=== PATIENT | female | born 1970 | race Caucasian/White ===

== ENCOUNTER 2022-01-07 20:13 | Emergency (ER) | payer MEDICAID ==
[~2022-01-07] VITALS: Ht 152.4 cm; Wt 48.0 kg
[~2022-01-07 20:13] MED LIST: AMOX-424 MT; INSU100I28 SQ
[2022-01-07] MEDS ORDERED: ONDANSETRON HCL 4MG/2ML INJ IV STA (21:15)
[2022-01-07] MEDS ORDERED: MORPHINE SULFATE 4 MG/ML CPJ (NOT FOR IM USE) IV STA (21:15)
[2022-01-07] MEDS ORDERED: SODIUM CHLORIDE 0.9% 1,000 ML IV ONE (21:15)
[2022-01-07 21:36] LABS: BASOPHILS % 0.4 % (0.0-2.0); EOSINOPHILS % 0.2 % (0.0-5.0); HEMATOCRIT. 30.5 % (36.0-48.0); HEMOGLOBIN. 10.9 g/dL (12.0-16.0); LYMPHOCYTES % 25.7 % (20.0-50.0); MEAN CORPUSCULAR HEMOGLOBIN 30.7 pg (28.0-32.0); MEAN PLATELET VOLUME 9.2 fl (7.4-10.4); MONOCYTES % 6.6 % (2.0-8.0); NEUTROPHILS % 67.1 % (40.0-76.0); PLATELET 269 x1000/uL (130-400); RED BLOOD CELL COUNT 3.55 mill/uL (4.2-5.4); RED CELL DISTRIBUTION WIDTH 13.4 % (11.6-14.6)
[2022-01-07 21:48] LABS: CHLORIDE 97 mEq/L (98-107)
[2022-01-07 21:54] LABS: HCG SCREEN NEGATIVE
[2022-01-07 23:22] LABS: CLARITY URINE CLEAR (CLEAR); COLOR URINE YELLOW (YELLOW); KETONES URINE NEGATIVE (NEGATIVE); LEUKOCYTE ESTERASE URINE NEGATIVE (NEGATIVE); NITRITE URINE NEGATIVE (NEGATIVE); OCCULT BLOOD URINE TRACE (NEGATIVE); PROTEIN URINE 3+ (NEGATIVE); SPECIFIC GRAVITY URINE 1.019 (1.005-1.030)
[2022-01-08] MEDS ORDERED: METO5TAB86 MT (01:22)
[2022-01-08] MEDS ORDERED: PROT20 MT (01:22)
[2022-01-08 02:00] VITALS: BP 122/81
== END 2022-01-08 02:04 | disposition home or self-care (01) ==
LOC: ER 20:13
DX: E11.43 Type 2 diabetes mellitus with diabetic autonomic (poly)neuropathy (principal); K31.84 Gastroparesis; K21.9 Gastro-esophageal reflux disease without esophagitis; Z79.899 Other long term (current) drug therapy
CPT/HCPCS: 36415; 71045; 74176; 80053; 81003; 82962; 83605; 83690; 84703; 85025; 93005; 96361; 96374; 96375; 99285; J2270; J2405; J7030

== ENCOUNTER 2023-02-07 23:12 | Emergency (ER) | payer MEDICAID ==
[~2023-02-07] VITALS: Ht 149.9 cm; Wt 58.7 kg
[~2023-02-07 23:12] MED LIST changes: +METO5TAB86 MT; +PROT20 MT
[2023-02-07 23:21] VITALS: O2SAT 100
[2023-02-08] MEDS ORDERED: LIDOCAINE HCL/PF 1% 10 MG/ML 5ML VIAL INFIL ONE (00:15)
[2023-02-08] MEDS ORDERED: SULFAMETHOXAZOLE/TRIMETHOPRIM 800/160MG TABLET PO ONE (00:15)
[2023-02-08] MEDS ORDERED: LIDOCAINE HCL 1% 20ML VIAL (Pyxis) INJ INFIL ONE (00:15)
[2023-02-08] MEDS ORDERED: LIDOCAINE HCL/EPINEPHRINE 1%-EPI 1:100,000 20 ML VIAL INFIL ONE (00:15)
[2023-02-08] MEDS ORDERED: CEFTRIAXONE SODIUM 1 G/VIAL IM ONE (00:15)
[2023-02-08] MEDS ORDERED: IBUPROFEN 400MG TABLET PO ONE (00:15)
[2023-02-08] MEDS ORDERED: HYDROCODONE/ACETAMINOPHEN 5/325MG TABLET PO ONE (01:45)
[2023-02-08] MEDS ORDERED: HYDR-4001 MT (01:46)
[2023-02-08] MEDS ORDERED: CEPH500C2 MT (01:46)
[2023-02-08] MEDS ORDERED: SULF1TAB48 MT (01:46)
[2023-02-08] MEDS ORDERED: IBUP-2028 MT (01:46)
[2023-02-08] MEDS ORDERED: CEFTRIAXONE SODIUM 1 G/VIAL IM NR (02:00)
[2023-02-08 02:40] VITALS: BP 105/61; PULSE 69; RESP 16; TEMP 98.4
== END 2023-02-08 02:45 | disposition home or self-care (01) ==
LOC: ER 23:12
DX: L02.212 Cutaneous abscess of back [any part, except buttock and flank] (principal); E11.9 Type 2 diabetes mellitus without complications; Z79.899 Other long term (current) drug therapy
CPT/HCPCS: 10060; 99284; 96372; J0696; J3490 ×2; Z7610 ×4

== ENCOUNTER 2023-02-11 21:00 | Inpatient (IN) | payer MEDICAID, OTHER ==
[~2023-02-11] VITALS: Ht 149.9 cm; Wt 66.0 kg
[~2023-02-11 21:00] MED LIST changes: +CEPH500C2 MT; +HYDR-4001 MT; +IBUP-2028 MT; +SULF1TAB48 MT
[2023-02-11] MEDS ORDERED: SODIUM CHLORIDE 0.9% 1000ML BAG (SEPSIS BOLUS) IV ONE (21:30)
[2023-02-11 22:03] LABS: MEAN CORPUSCULAR HEMOGLOBIN 29.7 pg (28.0-32.0); MEAN CORPUSCULAR VOLUME 89.9 fL (81.0-99.0); MEAN PLATELET VOLUME 9.2 fl (7.4-10.4); PLATELET 479 x1000/uL (130-400); RED BLOOD CELL COUNT 2.04 mill/uL (4.2-5.4); RED CELL DISTRIBUTION WIDTH 14.5 % (11.6-14.6); WHITE BLOOD COUNT 10.7 x1000/uL (4.5-11.0)
[2023-02-11 22:08] LABS: DIFFERENTIAL COMMENT 1
[2023-02-11 22:09] LABS: CHLORIDE 96 mEq/L (98-107); INDEX HEMOLYSI 1 (1-3); INDEX ICTERIC 1 (1-4); INDEX LIPEMIC 1 (1-3); INR 1.1; POTASSIUM 4.5 mEq/L (3.5-5.1); PROTHROMBIN TIME 11.8 sec (9.6-11.0); SODIUM 127 mEq/L (136-145)
[2023-02-11 22:11] LABS: HEMATOCRIT. 18.4 % (36.0-48.0); HEMOGLOBIN. 6.1 g/dL (12.0-16.0)
[2023-02-11 22:16] LABS: ALANINE AMINOTRANSFERASE 77 IU/L (13-61); ALBUMIN 1.1 g/dL (3.4-5.0); ASPARTATE AMINOTRANSFERASE 74 IU/L (15-37); BILIRUBIN TOTAL 0.1 mg/dL (0.1-1.0); CALCIUM 7.4 mg/dL (8.5-10.1); CARBON DIOXIDE 17 mEq/L (21-32); GLUCOSE 240 mg/dL (70-105); PROTEIN TOTAL 5.8 g/dL (6.0-8.3)
[2023-02-11 22:20] LABS: TROPONIN I HIGH SENSITIVITY 4 ng/L (<54)
[2023-02-11 22:23] LABS: CREATININE 5.4 mg/dL (0.6-1.3); UREA NITROGEN BLOOD 101 mg/dL (7-21)
[2023-02-11 23:32] LABS: PLATELET ESTIMATE INCREASED
[2023-02-12] VITALS (8 sets, daily range): BP systolic 82–114; BP diastolic 42–69; PULSE 58–68; RESP 14–20; TEMP 96.8–98.2
[2023-02-12] MEDS ORDERED: VANCOMYCIN 1G PREMIX 200 ML IV ONE (00:15)
[2023-02-12] MEDS ORDERED: PIPERACILLIN/TAZ 3.375G PREMIX 50 ML IV ONE (00:15)
[2023-02-12 06:22] LABS: CLARITY URINE CLOUDY (CLEAR); COLOR URINE YELLOW (YELLOW); GLUCOSE URINE 2+ (NEGATIVE); KETONES URINE NEGATIVE (NEGATIVE); LEUKOCYTE ESTERASE URINE NEGATIVE (NEGATIVE); NITRITE URINE NEGATIVE (NEGATIVE); OCCULT BLOOD URINE NEGATIVE (NEGATIVE); PH URINE 5.5 (4.5-8.0); PROTEIN URINE 3+ (NEGATIVE); SPECIFIC GRAVITY URINE 1.018 (1.005-1.030); UROBILINOGEN URINE 0.2 E.U./dL (0.2-1.0)
[2023-02-12 06:27] LABS: BACTERIA URINE NONE SEEN; YEAST URINE NONE SEEN
[2023-02-12 07:06] LABS: RBC URINE 0-2 /hpf (0-2); SQUAMOUS EPITHELIAL CELL URINE FEW /lpf (RARE/1+); WBC URINE 0-2 /hpf (0-2)
[2023-02-12] MEDS ORDERED: DEXTROSE 50% WATER 50ML SYRINGE IV PRN (08:15)
[2023-02-12] MEDS ORDERED: ONDANSETRON HCL 4MG/2ML INJ IV PRN (08:15)
[2023-02-12] MEDS: SODIUM CHLORIDE 0.9% 1,000 ML IV SCH ×2 (08:24→22:08)
[2023-02-12] MEDS: PANTOPRAZOLE SODIUM 40 MG/VIAL IV SCH ×2 (08:43→17:19)
[2023-02-12 09:15] LABS: HEMOGLOBIN. 7.6 g/dL (12.0-16.0); MEAN CORPUSCULAR HEMOGLOBIN 29.4 pg (28.0-32.0); MEAN CORPUSCULAR HGB CONC 32.8 g/dL (31.0-37.0); MEAN CORPUSCULAR VOLUME 89.6 fL (81.0-99.0); MEAN PLATELET VOLUME 9.3 fl (7.4-10.4); PLATELET 451 x1000/uL (130-400); RED BLOOD CELL COUNT 2.57 mill/uL (4.2-5.4); RED CELL DISTRIBUTION WIDTH 14.7 % (11.6-14.6); WHITE BLOOD COUNT 11.6 x1000/uL (4.5-11.0)
[2023-02-12 09:19] LABS: DIFFERENTIAL COMMENT 1
[2023-02-12] MEDS: INSULIN LISPRO 100 UNITS/ML SUBCUT SCH ×4 (09:30→22:05)
[2023-02-12] MEDS ORDERED: ALBUMIN HUMAN 25GM/100ML (25%) IV NR (10:30)
[2023-02-12 10:51] LABS: BASOPHILS % 0.2 % (0.0-2.0); DIFFERENTIAL COMMENT 0; EOSINOPHILS % 0.1 % (0.0-5.0); HEMATOCRIT. 24.1 % (36.0-48.0); HEMOGLOBIN. 7.9 g/dL (12.0-16.0); LYMPHOCYTES % 7.3 % (20.0-50.0); MEAN CORPUSCULAR HGB CONC 32.8 g/dL (31.0-37.0); MEAN CORPUSCULAR VOLUME 88.5 fL (81.0-99.0); MONOCYTES % 3.4 % (2.0-8.0); PLATELET 495 x1000/uL (130-400); RED BLOOD CELL COUNT 2.73 mill/uL (4.2-5.4); RED CELL DISTRIBUTION WIDTH 14.9 % (11.6-14.6); WHITE BLOOD COUNT 12.2 x1000/uL (4.5-11.0)
[2023-02-12 11:07] LABS: PLATELET ESTIMATE INCREASED
[2023-02-12 11:38] LABS: THYROID STIMULATING HORMONE 1.5 uIU/mL (0.36-3.74)
[2023-02-12 11:43] LABS: CALCIUM 7.1 mg/dL (8.5-10.1); CARBON DIOXIDE 13 mEq/L (21-32); CHLORIDE 103 mEq/L (98-107); CREATININE 5.1 mg/dL (0.6-1.3); GLUCOSE 256 mg/dL (70-105); POTASSIUM 4.6 mEq/L (3.5-5.1); PROTEIN TOTAL 5.7 g/dL (6.0-8.3); SODIUM 129 mEq/L (136-145); UREA NITROGEN BLOOD 78 mg/dL (7-21)
[2023-02-12 11:44] LABS: ALANINE AMINOTRANSFERASE 64 IU/L (13-61); ASPARTATE AMINOTRANSFERASE 44 IU/L (15-37); BILIRUBIN TOTAL 0.2 mg/dL (0.1-1.0); INDEX HEMOLYSI 1 (1-3); INDEX ICTERIC 1 (1-4); INDEX LIPEMIC 1 (1-3)
[2023-02-12] MEDS ORDERED: INSULIN LISPRO 100 UNITS/ML SUBCUT SCH (12:00)
[2023-02-12] MEDS: PIPERACILLIN/TAZOBACTAM 3.375 G in DEXTROSE 5% WATER 50 ML IV SCH ×2 (13:00→21:48)
[2023-02-12] MEDS: BLOOD SUGAR DIAGNOSTIC STRIP TEST SCH ×3 (14:00→21:00)
[2023-02-12 14:26] LABS: BG BASE EXCESS -10.4 mmol/L (-2.0-2.0); BG CARBOXYHEMOGLOBIN 0.3 % (0.5-1.5); BG DEOXYHEMOGLOBIN 2.5 % (0.0-5.0); BG FRACTION INSPIRED OXYGEN 21; BG HCO3 ACT 13.8 mmol/L (22.0-26.0); BG METHEMOGLOBIN 0.1 % (0.0-1.5); BG OXYGEN SATURATION 97.5 % (92.0-98.5); BG OXYHEMOGLOBIN 97.1 % (94.0-97.0); BG PCO2 24.9 mmHg (35.0-45.0); BG PO2 109.2 mmHg (75.0-100.0); BG SAMPLE SITE LEFT RADIAL; BG TOTAL HEMOGLOBIN 8.8 g/dL (12.0-18.0); BG VENT MODE ROOM AIR
[2023-02-12] MEDS ORDERED: SODIUM CHLORIDE 0.9% 250 ML IV ONE (17:45)
[2023-02-12] MEDS: MIDODRINE HCL 5MG TABLET PO SCH (17:59)
[2023-02-12] MEDS: ACETAMINOPHEN 325MG TABLET PO PRN (18:33)
[2023-02-12] MEDS ORDERED: PNEUMOCOCCAL 23-VAL P-SAC VAC 0.5 ML IM ONE (19:15)
[2023-02-13] VITALS: BP 112/61; PULSE 65; RESP 16; TEMP 96.8
[2023-02-13 04:00] VITALS: BP 92/46; PULSE 55; RESP 18; TEMP 97.1
[2023-02-13] MEDS: METOCLOPRAMIDE HCL 10MG/2ML VIAL IV SCH ×5 (06:24→23:56)
[2023-02-13] MEDS: BLOOD SUGAR DIAGNOSTIC STRIP TEST SCH ×4 (06:25→22:20)
[2023-02-13] MEDS: INSULIN LISPRO 100 UNITS/ML SUBCUT SCH ×4 (07:40→22:34)
[2023-02-13 08:00] VITALS: BP 113/62; PULSE 67; RESP 20; TEMP 97.8
[2023-02-13 08:02] LABS: ALANINE AMINOTRANSFERASE 53 IU/L (13-61); ALBUMIN 1.4 g/dL (3.4-5.0); ASPARTATE AMINOTRANSFERASE 34 IU/L (15-37); BILIRUBIN TOTAL 0.3 mg/dL (0.1-1.0); CALCIUM 7.6 mg/dL (8.5-10.1); CARBON DIOXIDE 13 mEq/L (21-32); GLUCOSE 146 mg/dL (70-105); INDEX HEMOLYSI 2 (1-3); INDEX ICTERIC 1 (1-4); INDEX LIPEMIC 1 (1-3); PHOSPHORUS 6.1 mg/dL (2.5-4.9); PROTEIN TOTAL 5.6 g/dL (6.0-8.3); UREA NITROGEN BLOOD 74 mg/dL (7-21)
[2023-02-13] MEDS: MIDODRINE HCL 5MG TABLET PO SCH ×3 (08:14→17:01)
[2023-02-13] MEDS: PANTOPRAZOLE SODIUM 40 MG/VIAL IV SCH ×2 (08:14→16:59)
[2023-02-13] MEDS: PIPERACILLIN/TAZOBACTAM 3.375 G in DEXTROSE 5% WATER 50 ML IV SCH ×2 (08:15→21:37)
[2023-02-13 08:48] LABS: CHLORIDE 103 mEq/L (98-107); SODIUM 129 mEq/L (136-145)
[2023-02-13 08:52] LABS: CREATININE 5.1 mg/dL (0.6-1.3)
[2023-02-13 10:52] LABS: HEMATOCRIT. 24.6 % (36.0-48.0); HEMOGLOBIN. 8.2 g/dL (12.0-16.0); MEAN CORPUSCULAR HEMOGLOBIN 29.9 pg (28.0-32.0); MEAN CORPUSCULAR HGB CONC 33.4 g/dL (31.0-37.0); MEAN CORPUSCULAR VOLUME 89.6 fL (81.0-99.0); MEAN PLATELET VOLUME 8.9 fl (7.4-10.4); PLATELET 541 x1000/uL (130-400); RED BLOOD CELL COUNT 2.74 mill/uL (4.2-5.4); RED CELL DISTRIBUTION WIDTH 15.2 % (11.6-14.6)
[2023-02-13 10:56] LABS: DIFFERENTIAL COMMENT 1
[2023-02-13 10:57] LABS: WHITE BLOOD COUNT 10.5 x1000/uL (4.5-11.0)
[2023-02-13 12:00] VITALS: BP 136/69; PULSE 70; RESP 20; TEMP 98.2
[2023-02-13] MEDS: SODIUM CHLORIDE 0.9% 1,000 ML IV SCH (12:31)
[2023-02-13] MEDS: MUPIROCIN 2% OINT 15GM TOP SCH ×2 (12:31→22:22)
[2023-02-13] MEDS: ACETAMINOPHEN 325MG TABLET PO PRN (12:46)
[2023-02-13 12:55] LABS: NUCLEATED RED BLOOD CELLS 1 /100 WBC
[2023-02-13 12:56] LABS: ANISOCYTOSIS 1+; PLATELET ESTIMATE INCREASED
[2023-02-13] MEDS ORDERED: NALOXONE HCL 0.4MG/ML VIAL IV PRN (13:45)
[2023-02-13 16:00] VITALS: BP 120/64; PULSE 71; RESP 20; TEMP 98.1
[2023-02-13] MEDS ORDERED: ALBUMIN HUMAN 25GM/100ML (25%) IV NR (16:00)
[2023-02-13] MEDS: SODIUM BICARBONATE 150 MEQ in DEXTROSE 5% WATER 1,000 ML IV SCH (16:11)
[2023-02-13] MEDS: HYDROCODONE/ACETAMINOPHEN 5/325MG TABLET PO PRN (17:02)
[2023-02-13 20:00] VITALS: BP 138/70; PULSE 64; RESP 20; TEMP 98
[2023-02-14] VITALS: BP 128/80; PULSE 70; RESP 18; TEMP 98.4
[2023-02-14] MEDS: ACETAMINOPHEN 325MG TABLET PO PRN (00:13)
[2023-02-14] MEDS: SODIUM BICARBONATE 150 MEQ in DEXTROSE 5% WATER 1,000 ML IV SCH (03:30)
[2023-02-14 04:00] VITALS: BP 143/77; PULSE 69; RESP 20; TEMP 98
[2023-02-14 05:43] LABS: HEMATOCRIT. 24.7 % (36.0-48.0); HEMOGLOBIN. 8.5 g/dL (12.0-16.0); MEAN CORPUSCULAR HEMOGLOBIN 29.9 pg (28.0-32.0); MEAN CORPUSCULAR HGB CONC 34.3 g/dL (31.0-37.0); MEAN CORPUSCULAR VOLUME 87.2 fL (81.0-99.0); MEAN PLATELET VOLUME 8.3 fl (7.4-10.4); PLATELET 554 x1000/uL (130-400); RED BLOOD CELL COUNT 2.83 mill/uL (4.2-5.4); WHITE BLOOD COUNT 9.7 x1000/uL (4.5-11.0)
[2023-02-14 06:01] LABS: POTASSIUM 4.7 mEq/L (3.5-5.1)
[2023-02-14 06:06] LABS: CALCIUM 7.4 mg/dL (8.5-10.1); CREATININE 4.5 mg/dL (0.6-1.3); PHOSPHORUS 5.7 mg/dL (2.5-4.9)
[2023-02-14] MEDS: BLOOD SUGAR DIAGNOSTIC STRIP TEST SCH ×4 (06:43→21:55)
[2023-02-14 06:48] LABS: DIFFERENTIAL COMMENT 1
[2023-02-14] MEDS: INSULIN LISPRO 100 UNITS/ML SUBCUT SCH ×4 (06:48→21:55)
[2023-02-14] MEDS: HYDROCODONE/ACETAMINOPHEN 5/325MG TABLET PO PRN ×2 (06:53→21:53)
[2023-02-14 08:00] VITALS: BP 142/84; PULSE 72; RESP 20; TEMP 96
[2023-02-14] MEDS: MIDODRINE HCL 5MG TABLET PO SCH ×3 (09:00→17:00)
[2023-02-14] MEDS: CITRIC ACID/SODIUM CITRATE SOLN 30ML UDC PO SCH ×3 (09:41→17:00)
[2023-02-14] MEDS: PIPERACILLIN/TAZOBACTAM 3.375 G in DEXTROSE 5% WATER 50 ML IV SCH ×2 (09:41→20:47)
[2023-02-14] MEDS: PANTOPRAZOLE SODIUM 40 MG/VIAL IV SCH ×2 (09:41→17:00)
[2023-02-14 12:00] VITALS: BP 134/69; PULSE 73; RESP 18; TEMP 96
[2023-02-14] MEDS: METOCLOPRAMIDE HCL 10MG/2ML VIAL IV SCH ×4 (12:00→23:25)
[2023-02-14] MEDS: MUPIROCIN 2% OINT 15GM TOP SCH (13:09)
[2023-02-14 16:00] VITALS: BP 128/73; PULSE 70; RESP 20; TEMP 96
[2023-02-14] MEDS ORDERED: VANCOMYCIN 1500MG in DEXTROSE 5% WATER 250ML IV SCH (16:00)
[2023-02-14 18:04] LABS: PLATELET ESTIMATE MARKEDLY INCREASED
[2023-02-14 18:05] LABS: ANISOCYTOSIS 1+
[2023-02-14 20:00] VITALS: BP 129/75; PULSE 69; RESP 20; TEMP 98.6
[2023-02-14] MEDS ORDERED: INSULIN GLARGINE 100 UNITS/ML SUBCUT NR (20:00)
[2023-02-15] VITALS (7 sets, daily range): BP systolic 118–169; BP diastolic 60–92; PULSE 80–89; RESP 18–20; TEMP 96.3–97.8; O2SAT 98
[2023-02-15] MEDS: MUPIROCIN 2% OINT 15GM TOP SCH ×2 (01:00→12:17)
[2023-02-15] MEDS: METOCLOPRAMIDE HCL 10MG/2ML VIAL IV SCH ×3 (05:10→17:50)
[2023-02-15] MEDS: INSULIN LISPRO 100 UNITS/ML SUBCUT SCH ×3 (06:07→17:52)
[2023-02-15] MEDS: BLOOD SUGAR DIAGNOSTIC STRIP TEST SCH ×3 (06:07→17:50)
[2023-02-15 07:45] LABS: BASOPHILS % 0.2 % (0.0-2.0); DIFFERENTIAL COMMENT 0; EOSINOPHILS % 0.2 % (0.0-5.0); HEMATOCRIT. 27.6 % (36.0-48.0); HEMOGLOBIN. 9.2 g/dL (12.0-16.0); LYMPHOCYTES % 8.6 % (20.0-50.0); MEAN CORPUSCULAR HEMOGLOBIN 29.5 pg (28.0-32.0); MEAN CORPUSCULAR HGB CONC 33.2 g/dL (31.0-37.0); MEAN CORPUSCULAR VOLUME 88.8 fL (81.0-99.0); MONOCYTES % 3.8 % (2.0-8.0); NEUTROPHILS % 87.2 % (40.0-76.0); PLATELET 562 x1000/uL (130-400); RED BLOOD CELL COUNT 3.11 mill/uL (4.2-5.4); RED CELL DISTRIBUTION WIDTH 15.2 % (11.6-14.6); WHITE BLOOD COUNT 11.8 x1000/uL (4.5-11.0)
[2023-02-15 07:49] LABS: INR 1.1; PROTHROMBIN TIME 11.6 sec (9.6-11.0)
[2023-02-15 08:16] LABS: ALANINE AMINOTRANSFERASE 38 IU/L (13-61); ALBUMIN 1.7 g/dL (3.4-5.0); ASPARTATE AMINOTRANSFERASE 17 IU/L (15-37); BILIRUBIN TOTAL 0.3 mg/dL (0.1-1.0); CARBON DIOXIDE 16 mEq/L (21-32); CHLORIDE 106 mEq/L (98-107); CREATININE 4.2 mg/dL (0.6-1.3); GLUCOSE 286 mg/dL (70-105); INDEX HEMOLYSI 1 (1-3); INDEX ICTERIC 1 (1-4); INDEX LIPEMIC 1 (1-3); PHOSPHORUS 5.5 mg/dL (2.5-4.9); POTASSIUM 5.1 mEq/L (3.5-5.1); PROTEIN TOTAL 6.6 g/dL (6.0-8.3); SODIUM 131 mEq/L (136-145); UREA NITROGEN BLOOD 62 mg/dL (7-21)
[2023-02-15] MEDS: PIPERACILLIN/TAZOBACTAM 3.375 G in DEXTROSE 5% WATER 50 ML IV SCH (08:56)
[2023-02-15] MEDS: PANTOPRAZOLE SODIUM 40 MG/VIAL IV SCH ×2 (08:56→17:50)
[2023-02-15] MEDS: CITRIC ACID/SODIUM CITRATE SOLN 30ML UDC PO SCH ×3 (08:57→17:50)
[2023-02-15] MEDS ORDERED: INSULIN GLARGINE 100 UNITS/ML SUBCUT SCH (10:00)
[2023-02-15] MEDS ORDERED: PROPOFOL 200MG/20ML VIAL IV ONE (12:37)
[2023-02-15] MEDS ORDERED: LIDOCAINE HCL 2% 5ML SYRINGE IV ONE (12:38)
[2023-02-15] MEDS ORDERED: MIDAZOLAM HCL 2 MG/2 ML VIAL ONE (12:39)
[2023-02-15] MEDS ORDERED: ONDANSETRON HCL 4MG/2ML INJ ONE (12:40)
[2023-02-15] MEDS ORDERED: DEXAMETHASONE 4MG/ML 1ML VIAL ONE (12:40)
[2023-02-15] MEDS ORDERED: PROT40 MT (17:08)
[2023-02-15] MEDS ORDERED: SUCRALFATE 1 G/10 ML UDC PO SCH (17:10)
[2023-02-15] MEDS ORDERED: SUCR1TAB MT (17:12)
[2023-02-15] MEDS ORDERED: DOXY100T2 MT (17:12)
== END 2023-02-15 20:20 | disposition home or self-care (01) | DRG 720 ==
LOC: ER 21:00 → MICUSO 02-12 00:10 → 8WST 02-12 12:59
PROVIDERS: ADMIT Internal Medicine; ATTEND Internal Medicine
PROC: 30233N1 Transfusion of Nonautologous Red Blood Cells into Peripheral Vein, Percutaneous Approach (ICD-10-PCS; 2023-02-12)
PROC: 0DB68ZX Excision of Stomach, Via Natural or Artificial Opening Endoscopic, Diagnostic (ICD-10-PCS; principal; 2023-02-15)
DX: A41.9 Sepsis, unspecified organism (principal); N17.0 Acute kidney failure with tubular necrosis; U07.1 COVID-19; E87.20 Acidosis, unspecified; E43 Unspecified severe protein-calorie malnutrition; E87.1 Hypo-osmolality and hyponatremia; L02.212 Cutaneous abscess of back [any part, except buttock and flank]; K92.2 Gastrointestinal hemorrhage, unspecified; E11.22 Type 2 diabetes mellitus with diabetic chronic kidney disease; D64.9 Anemia, unspecified; E11.43 Type 2 diabetes mellitus with diabetic autonomic (poly)neuropathy; R65.20 Severe sepsis without septic shock; N18.9 Chronic kidney disease, unspecified; I12.9 Hypertensive chronic kidney disease with stage 1 through stage 4 chronic kidney disease, or unspecified chronic kidney disease; E11.42 Type 2 diabetes mellitus with diabetic polyneuropathy; E11.51 Type 2 diabetes mellitus with diabetic peripheral angiopathy without gangrene; E78.5 Hyperlipidemia, unspecified; F17.210 Nicotine dependence, cigarettes, uncomplicated; K21.9 Gastro-esophageal reflux disease without esophagitis; K31.84 Gastroparesis; L60.0 Ingrowing nail; N20.0 Calculus of kidney; R74.01 Elevation of levels of liver transaminase levels; Z68.29 Body mass index [BMI] 29.0-29.9, adult
CPT/HCPCS: 36415; 36600; 71045; 71250; 74176; 76770; 80048; 80053; 81003; 82270; 82375; 82533; 82550; 82570; 82805; 82962; 83605; 83735; 83935; 84100; 84145; 84156; 84443; 84484; 85025; 86850; 86900; 86920; 87426; 88305; 90732; 93005; 97116; 97162; 97166; 99285; C9113; J1100; J1815; J2250; J2405; J2543; J2704; J2765; J3370; J3490; J7030; J7060; J7070; P9016; P9047

== ENCOUNTER → 2024-02-17 | Day surgery (SDC) | payer MEDICAID ==
[~2024-02-17] VITALS: Ht 152.4 cm; Wt 55.8 kg
[~2024-02-17] MED LIST changes: +ACYC15OI7 TP; +AMLO10TA80 PO; -AMOX-424 MT; +ASPI-1160 PO; +BALANCED SALT IRRIG SOLN 15ML ONE; +BALANCED SALT IRRIG SOLN COMB1 500ML OP NR; -CEPH500C2 MT; +CIPR2.5D20 LEFTEYE; +CYCLOPENTOLATE HCL 1% OPHTH DROPS 2ML RIGHTEYE ONE; +DORZ10DR9 EACHEYE; +GABA-529 PO; +GLIM1TAB55 PO; +HYALURONATE SODIUM 10MG/ML 0.85ML SYRINGE IO ONE; -HYDR-4001 MT; -IBUP-2028 MT; +KETO10TA2 MT; +LATA2.5D14 EACHEYE; +LIP40 PO; -METO5TAB86 MT; +MIDAZOLAM HCL 2 MG/2 ML VIAL ONE; +PHENYLEPHRINE HCL 10% OPHTH DROPS 5ML RIGHTEYE ONE; -PROT20 MT; -SULF1TAB48 MT; +TROPICAMIDE 1% OPHTH DROPS 15ML RIGHTEYE ONE; +TRYPAN BLUE 0.5 ML DISP.SYRIN IO ONE
[2024-02-17 10:23] LABS: BASOPHILS % 0.4 % (0.0-2.0); EOSINOPHILS % 1.9 % (0.0-5.0); HEMATOCRIT. 30.9 % (36.0-48.0); LYMPHOCYTES % 15.4 % (20.0-50.0); MEAN CORPUSCULAR HEMOGLOBIN 30.6 pg (28.0-32.0); MEAN CORPUSCULAR HGB CONC 32.5 g/dL (31.0-37.0); MEAN CORPUSCULAR VOLUME 94.2 fL (81.0-99.0); MEAN PLATELET VOLUME 8.9 fl (7.4-10.4); NEUTROPHILS % 75.3 % (40.0-76.0); PLATELET 240 x1000/uL (130-400); RED BLOOD CELL COUNT 3.28 mill/uL (4.2-5.4); RED CELL DISTRIBUTION WIDTH 15.6 % (11.6-14.6)
[2024-02-17 10:28] LABS: POTASSIUM 5.8 mEq/L (3.5-5.1)
[2024-02-17 10:29] LABS: CALCIUM 8.3 mg/dL (8.7-10.4)
[2024-02-17 10:34] LABS: CREATININE 4.1 mg/dL (0.6-1.0)
[2024-02-17] MEDS: SODIUM CHLORIDE 0.9% 500 ML IV ONE (12:13)
== END | disposition home or self-care (01) ==
LOC: OR 09:55
PROVIDERS: ATTEND Ophthalmology
DX: E11.36 Type 2 diabetes mellitus with diabetic cataract (principal); H25.89 Other age-related cataract; H25.011 Cortical age-related cataract, right eye; I12.0 Hypertensive chronic kidney disease with stage 5 chronic kidney disease or end stage renal disease; N18.6 End stage renal disease; E11.22 Type 2 diabetes mellitus with diabetic chronic kidney disease; E78.5 Hyperlipidemia, unspecified; Z99.2 Dependence on renal dialysis; Z87.891 Personal history of nicotine dependence; Z79.82 Long term (current) use of aspirin; Z79.4 Long term (current) use of insulin; Z79.899 Other long term (current) drug therapy; Z98.890 Other specified postprocedural states; Z83.3 Family history of diabetes mellitus
CPT/HCPCS: 66984; 80048; 85025; 36415; 93005; J3490 ×3; J2250; Q9957; V2632

== ENCOUNTER 2024-02-25 13:49 | Emergency (ER) | payer MEDICAID ==
[~2024-02-25] VITALS: Ht 165.1 cm; Wt 61.0 kg
[~2024-02-25 13:49] MED LIST changes: -BALANCED SALT IRRIG SOLN 15ML ONE; -BALANCED SALT IRRIG SOLN COMB1 500ML OP NR; -CIPR2.5D20 LEFTEYE; -CYCLOPENTOLATE HCL 1% OPHTH DROPS 2ML RIGHTEYE ONE; +GLIM1TAB PO; -GLIM1TAB55 PO; -HYALURONATE SODIUM 10MG/ML 0.85ML SYRINGE IO ONE; -KETO10TA2 MT; -MIDAZOLAM HCL 2 MG/2 ML VIAL ONE; -PHENYLEPHRINE HCL 10% OPHTH DROPS 5ML RIGHTEYE ONE; -TROPICAMIDE 1% OPHTH DROPS 15ML RIGHTEYE ONE; -TRYPAN BLUE 0.5 ML DISP.SYRIN IO ONE
[2024-02-25 13:53] VITALS: O2SAT 95
[2024-02-25] MEDS: TETRACAINE 0.5% OPHTH DROPS 4ML BOTHEYE ONE (15:00)
[2024-02-25] MEDS: FLUORESCEIN SODIUM 1MG/STRIP BOTHEYE ONE (15:00)
[2024-02-25] MEDS ORDERED: KETO10TA2 MT (16:28)
[2024-02-25] MEDS ORDERED: CIPR2.5D20 LEFTEYE (16:31)
[2024-02-25 16:45] VITALS: BP 119/68; PULSE 84; RESP 19; TEMP 36.55848; O2SAT 100
== END 2024-02-25 18:10 | disposition home or self-care (01) ==
LOC: ER 13:49
DX: S05.02XA Injury of conjunctiva and corneal abrasion without foreign body, left eye, initial encounter (principal); E11.9 Type 2 diabetes mellitus without complications; E78.00 Pure hypercholesterolemia, unspecified; Z79.899 Other long term (current) drug therapy; X58.XXXA Exposure to other specified factors, initial encounter; Y93.89 Activity, other specified; Y92.89 Other specified places as the place of occurrence of the external cause; Y99.8 Other external cause status
CPT/HCPCS: 99283

== ENCOUNTER 2024-04-06 10:18 | Inpatient (IN) | payer MEDICAID ==
[~2024-04-06] VITALS: Ht 160 cm; Wt 64.0 kg
[~2024-04-06 10:18] MED LIST changes: +CIPR2.5D20 LEFTEYE; -GLIM1TAB PO; +GLIM1TAB55 PO; +KETO10TA2 MT
[2024-04-06 11:00] LABS: BASOPHILS % 0.9 % (0.0-2.0); EOSINOPHILS % 1.7 % (0.0-5.0); HEMOGLOBIN. 11.3 g/dL (12.0-16.0); LYMPHOCYTES % 14.3 % (20.0-50.0); MEAN CORPUSCULAR HEMOGLOBIN 30.8 pg (28.0-32.0); MEAN CORPUSCULAR HGB CONC 31.5 g/dL (31.0-37.0); MEAN CORPUSCULAR VOLUME 97.9 fL (81.0-99.0); MEAN PLATELET VOLUME 8.9 fl (7.4-10.4); MONOCYTES % 9.4 % (2.0-8.0); NEUTROPHILS % 73.7 % (40.0-76.0); PLATELET 282 x1000/uL (130-400); RED BLOOD CELL COUNT 3.68 mill/uL (4.2-5.4); RED CELL DISTRIBUTION WIDTH 15.8 % (11.6-14.6); WHITE BLOOD COUNT 5.8 x1000/uL (4.5-11.0)
[2024-04-06 11:10] LABS: CALCIUM 8.9 mg/dL (8.7-10.4)
[2024-04-06 11:24] LABS: CREATININE 5.3 mg/dL (0.6-1.0); POTASSIUM 6.4 mEq/L (3.5-5.1)
[2024-04-06 12:00] LABS: PARTIAL THROMBOPLASTIN TIME 30.4 sec (23.4-31.0)
[2024-04-06] MEDS: CALCIUM CHLORIDE 1,000 MG in DEXT 5% WATER 100 ML IV ONE (12:15)
[2024-04-06] MEDS ORDERED: INSULIN REGULAR (HUMULIN R) 1000UNITS/10ML VIAL IV ONE (12:15)
[2024-04-06] MEDS ORDERED: DEXTROSE 50% WATER 50ML SYRINGE IV ONE (12:15)
[2024-04-06] MEDS ORDERED: TRIAMCINOLONE ACETONIDE 40MG/ML 1ML VIAL ONE (13:16)
[2024-04-06 13:39] VITALS: PULSE 73; RESP 18; O2SAT 97
[2024-04-06] MEDS: ALBUTEROL (0.083%) 2.5MG/3ML NEB HHN SCH (13:39)
[2024-04-06] MEDS: DEXTROSE 50% WATER 50ML SYRINGE IV NR (13:50)
[2024-04-06] MEDS: INSULIN REGULAR (HUMULIN R) 1000UNITS/10ML VIAL IV NR (13:52)
[2024-04-06] MEDS: CALCIUM CHLORIDE 1,000 MG in DEXT 5% WATER 100 ML IV NR (14:01)
[2024-04-06 14:04] VITALS: PULSE 77; RESP 18
[2024-04-06] MEDS: ALBUTEROL (0.083%) 2.5MG/3ML NEB HHN NR (15:10)
[2024-04-06 15:11] VITALS: PULSE 83; RESP 18
[2024-04-06 15:50] VITALS: BP 124/68; PULSE 90; RESP 20; TEMP 36.16956; TEMP 36.1956; O2SAT 100
[2024-04-06] MEDS ORDERED: ACETAMINOPHEN 325MG TABLET PO PRN (18:00)
[2024-04-06] MEDS ORDERED: ONDANSETRON HCL 4MG/2ML INJ IV PRN (18:00)
[2024-04-06 20:10] VITALS: BP 124/68; PULSE 86; RESP 18; TEMP 36.3918; O2SAT 97
[2024-04-06] MEDS ORDERED: OXYC-485 PO (20:29)
[2024-04-06] MEDS ORDERED: OXYCODONE HCL 5MG TABLET PO PRN (20:45)
[2024-04-06] MEDS ORDERED: NALOXONE HCL 0.4MG/ML VIAL IV PRN (20:45)
[2024-04-06] MEDS: BLOOD SUGAR DIAGNOSTIC STRIP TEST SCH (21:00)
[2024-04-06 21:11] LABS: POTASSIUM 5.8 mEq/L (3.5-5.1)
[2024-04-06] MEDS: SODIUM POLYSTYRENE SULFONATE 15 G/60 ML BOT PO NR (21:14)
[2024-04-06] MEDS: OXYCODONE HCL 5MG TABLET PO SCH (21:16)
[2024-04-06] MEDS: HEPARIN 5000 UNITS/ML VIAL SUBCUT SCH (21:18)
[2024-04-06] MEDS: LATANOPROST 0.005% OPHTH DROPS 2.5ML RIGHTEYE SCH (22:31)
[2024-04-06] MEDS: DORZOLAMIDE 2% OPHTH 10 ML BOTTLE RIGHTEYE SCH (22:31)
[2024-04-06] MEDS: TIMOLOL MALEATE 0.5% OPHTH DROPS 5ML RIGHTEYE SCH (22:31)
[2024-04-06] MEDS: INSULIN LISPRO 100 UNITS/ML SUBCUT SCH (22:36)
[2024-04-07] VITALS (7 sets, daily range): BP systolic 137–158; BP diastolic 78–88; PULSE 72–90; RESP 17–19; TEMP 36.28068–36.89184; O2SAT 96–98
[2024-04-07 04:48] LABS: CALCIUM 9.1 mg/dL (8.7-10.4)
[2024-04-07 05:14] LABS: CREATININE 6.2 mg/dL (0.6-1.0); POTASSIUM 6.5 mEq/L (3.5-5.1)
[2024-04-07] MEDS: ALBUTEROL (0.083%) 2.5MG/3ML NEB HHN NR (05:44)
[2024-04-07] MEDS: DEXTROSE 50% WATER 50ML SYRINGE IV NR (05:46)
[2024-04-07] MEDS: INSULIN REGULAR (HUMULIN R) 1000UNITS/10ML VIAL IV NR (05:47)
[2024-04-07] MEDS: SODIUM POLYSTYRENE SULFONATE 15 G/60 ML BOT PO NR (06:02)
[2024-04-07] MEDS: FUROSEMIDE 40MG/4ML VIAL IVP NR (06:12)
[2024-04-07] MEDS: CALCIUM GLUCONATE 100MG/ML 10ML VIAL IV NR (06:14)
[2024-04-07 07:21] LABS: BASOPHILS % 1.1 % (0.0-2.0); EOSINOPHILS % 1.1 % (0.0-5.0); HEMATOCRIT. 34.5 % (36.0-48.0); HEMOGLOBIN. 11.1 g/dL (12.0-16.0); LYMPHOCYTES % 11.2 % (20.0-50.0); MEAN CORPUSCULAR HEMOGLOBIN 31.6 pg (28.0-32.0); MEAN CORPUSCULAR HGB CONC 32.1 g/dL (31.0-37.0); MEAN CORPUSCULAR VOLUME 98.4 fL (81.0-99.0); MEAN PLATELET VOLUME 9.9 fl (7.4-10.4); MONOCYTES % 8.3 % (2.0-8.0); NEUTROPHILS % 78.3 % (40.0-76.0); PLATELET 265 x1000/uL (130-400); RED BLOOD CELL COUNT 3.51 mill/uL (4.2-5.4); RED CELL DISTRIBUTION WIDTH 15.6 % (11.6-14.6); WHITE BLOOD COUNT 6.6 x1000/uL (4.5-11.0)
[2024-04-07 17:25] LABS: POTASSIUM 6.1 mEq/L (3.5-5.1)
[2024-04-07 17:27] LABS: CALCIUM 8.4 mg/dL (8.7-10.4)
[2024-04-07] MEDS: GABAPENTIN 100MG CAPSULE PO SCH (17:35)
[2024-04-07 17:44] LABS: CREATININE 6.3 mg/dL (0.6-1.0)
[2024-04-07] MEDS: SODIUM ZIRCONIUM CYCLOSILICATE 10GM/PACKET PO NR (18:59)
[2024-04-07] MEDS: ATORVASTATIN CALCIUM 40MG TABLET PO SCH (21:04)
[2024-04-07] MEDS: INSULIN GLARGINE 100 UNITS/ML SUBCUT SCH (21:54)
[2024-04-08] VITALS (12 sets, daily range): BP systolic 135–176; BP diastolic 73–99; PULSE 2–86; RESP 16–20; TEMP 36.55848–37.00296; O2SAT 96–99
[2024-04-08 04:03] LABS: EOSINOPHILS % 2.6 % (0.0-5.0); HEMATOCRIT. 34.2 % (36.0-48.0); HEMOGLOBIN. 11.3 g/dL (12.0-16.0); MEAN CORPUSCULAR HGB CONC 33.1 g/dL (31.0-37.0); MEAN CORPUSCULAR VOLUME 96.8 fL (81.0-99.0); MEAN PLATELET VOLUME 8.7 fl (7.4-10.4); MONOCYTES % 7.6 % (2.0-8.0); NEUTROPHILS % 74.8 % (40.0-76.0); PLATELET 276 x1000/uL (130-400); RED BLOOD CELL COUNT 3.53 mill/uL (4.2-5.4); RED CELL DISTRIBUTION WIDTH 15.4 % (11.6-14.6); WHITE BLOOD COUNT 6.1 x1000/uL (4.5-11.0)
[2024-04-08 04:10] LABS: CALCIUM 8.3 mg/dL (8.7-10.4); POTASSIUM 3.8 mEq/L (3.5-5.1)
[2024-04-08 04:16] LABS: CREATININE 4.3 mg/dL (0.6-1.0)
[2024-04-08] MEDS: CLONIDINE 0.1MG TABLET PO PRN (06:15)
[2024-04-08] MEDS: AMLODIPINE 10MG TABLET PO SCH (08:19)
[2024-04-08] MEDS: HYDROCODONE/ACETAMINOPHEN 5/325MG TABLET PO PRN (22:36)
[2024-04-09] VITALS: BP 147/80; PULSE 68; RESP 18; TEMP 36.78072; O2SAT 98
[2024-04-09 04:00] VITALS: BP 147/85; PULSE 72; RESP 20; TEMP 36.61404; O2SAT 98
[2024-04-09] MEDS ORDERED: TRIAMCINOLONE ACETONIDE 40MG/ML 1ML VIAL ONE (06:56)
[2024-04-09 07:05] LABS: POTASSIUM 5.3 mEq/L (3.5-5.1)
[2024-04-09 07:06] LABS: CALCIUM 8.2 mg/dL (8.7-10.4)
[2024-04-09] MEDS ORDERED: PROPOFOL 200MG/20ML VIAL IV ONE (07:49)
[2024-04-09 07:56] LABS: CREATININE 5.7 mg/dL (0.6-1.0)
[2024-04-09] MEDS ORDERED: ACETYLCHOLINE CHLORIDE INTRAOCULAR SOLUTION 1:100 ELECTROLYTE DILUENT IO ONE (08:00)
[2024-04-09] MEDS ORDERED: GLYCOPYRROLATE 0.2MG/ML VIAL 5ML IV PRN (09:00)
[2024-04-09] MEDS ORDERED: HYDRALAZINE 20MG/ML VIAL IV PRN (09:00)
[2024-04-09] MEDS ORDERED: ONDANSETRON HCL 4MG/2ML INJ IV PRN (09:00)
[2024-04-09] MEDS ORDERED: LABETALOL 5MG/ML 4ML INJ IV PRN (09:00)
[2024-04-09] MEDS ORDERED: HYDROMORPHONE HCL/PF 1MG/ML INJ IV PRN (09:00)
[2024-04-09 11:13] VITALS: BP 135/82; PULSE 75; RESP 18; TEMP 36.44736; O2SAT 97
[2024-04-09 16:00] VITALS: BP 152/85; PULSE 68; RESP 18; TEMP 36.55848; O2SAT 96
[2024-04-09 20:00] VITALS: BP 148/81; PULSE 76; RESP 18; TEMP 36.50292; O2SAT 98
[2024-04-10] VITALS (19 sets, daily range): BP systolic 142–168; BP diastolic 75–92; PULSE 69–79; RESP 12–19; TEMP 36.33624–36.6696; O2SAT 95–100
[2024-04-10] MEDS ORDERED: LIDOCAINE HCL 1% 10 MG/ML 10ML VIAL ONE ×2 (07:35→07:47)
[2024-04-10] MEDS: CEFAZOLIN 1000MG PREMIX 50 ML IV ONE (08:05)
[2024-04-10] MEDS ORDERED: FENTANYL CITRATE/PF 50MCG/ML 2ML VIAL ONE (08:07)
[2024-04-10] MEDS: FENTANYL CITRATE/PF 50MCG/ML 2ML VIAL IV ONE (08:10)
[2024-04-10] MEDS: DOCUSATE SODIUM 100MG CAPSULE PO PRN (10:49)
[2024-04-10 12:55] LABS: BASOPHILS % 0.7 % (0.0-2.0); EOSINOPHILS % 1.4 % (0.0-5.0); HEMATOCRIT. 31.4 % (36.0-48.0); HEMOGLOBIN. 10.4 g/dL (12.0-16.0); LYMPHOCYTES % 9.6 % (20.0-50.0); MEAN CORPUSCULAR HEMOGLOBIN 32.2 pg (28.0-32.0); MEAN CORPUSCULAR HGB CONC 33.1 g/dL (31.0-37.0); MEAN CORPUSCULAR VOLUME 97.5 fL (81.0-99.0); MEAN PLATELET VOLUME 8.7 fl (7.4-10.4); MONOCYTES % 6.7 % (2.0-8.0); NEUTROPHILS % 81.6 % (40.0-76.0); PLATELET 285 x1000/uL (130-400); RED BLOOD CELL COUNT 3.22 mill/uL (4.2-5.4); RED CELL DISTRIBUTION WIDTH 15.7 % (11.6-14.6); WHITE BLOOD COUNT 6.8 x1000/uL (4.5-11.0)
[2024-04-10 13:01] LABS: POTASSIUM 4.4 mEq/L (3.5-5.1)
[2024-04-10 13:02] LABS: CALCIUM 8.3 mg/dL (8.7-10.4)
[2024-04-10 13:07] LABS: CREATININE 4.6 mg/dL (0.6-1.0)
[2024-04-10] MEDS ORDERED: PRED5DRO22 RIGHTEYE (13:13)
[2024-04-10] MEDS ORDERED: CIPR2.5D20 RIGHTEYE (13:13)
[2024-04-10] MEDS: CIPROFLOXACIN 0.3% OPHTH SOLN 2.5ML RIGHTEYE SCH (15:26)
[2024-04-10] MEDS: PREDNISOLONE ACETATE 1% OPHTH DROPS 5ML RIGHTEYE SCH (15:26)
[2024-04-11] VITALS: BP 142/77; PULSE 78; RESP 20; TEMP 37.66968; O2SAT 97
[2024-04-11 04:00] VITALS: BP 142/80; PULSE 78; RESP 20; TEMP 37.00296; O2SAT 97
[2024-04-11 08:00] VITALS: BP 148/84; PULSE 78; RESP 20; TEMP 36.33624; O2SAT 99
[2024-04-11 12:00] VITALS: BP 156/87; PULSE 74; RESP 18; TEMP 36.89184; O2SAT 100
[2024-04-11 16:00] VITALS: BP 124/71; PULSE 75; RESP 18; TEMP 36.6696; O2SAT 98
[2024-04-11 20:00] VITALS: BP 125/73; PULSE 72; RESP 20; TEMP 36.72516; O2SAT 98
[2024-04-12] VITALS (10 sets, daily range): BP systolic 131–160; BP diastolic 68–89; PULSE 66–80; RESP 18–20; TEMP 36.33624–37.16964; O2SAT 98–100
[2024-04-12 16:19] LABS: CALCIUM 8.4 mg/dL (8.7-10.4)
[2024-04-12 16:22] LABS: BASOPHILS % 0.9 % (0.0-2.0); EOSINOPHILS % 1.4 % (0.0-5.0); HEMATOCRIT. 33.7 % (36.0-48.0); HEMOGLOBIN. 10.7 g/dL (12.0-16.0); LYMPHOCYTES % 7.9 % (20.0-50.0); MEAN CORPUSCULAR HEMOGLOBIN 30.9 pg (28.0-32.0); MEAN CORPUSCULAR HGB CONC 31.7 g/dL (31.0-37.0); MEAN CORPUSCULAR VOLUME 97.5 fL (81.0-99.0); MEAN PLATELET VOLUME 8.8 fl (7.4-10.4); MONOCYTES % 5.5 % (2.0-8.0); NEUTROPHILS % 84.3 % (40.0-76.0); PLATELET 281 x1000/uL (130-400); RED BLOOD CELL COUNT 3.45 mill/uL (4.2-5.4); RED CELL DISTRIBUTION WIDTH 16.2 % (11.6-14.6); WHITE BLOOD COUNT 7.7 x1000/uL (4.5-11.0)
[2024-04-12 16:24] LABS: CREATININE 5.1 mg/dL (0.6-1.0)
[2024-04-13] VITALS: BP 143/76; PULSE 73; RESP 18; TEMP 36.72516; O2SAT 97
[2024-04-13 04:00] VITALS: BP 141/74; PULSE 80; RESP 18; TEMP 36.33624; O2SAT 99
[2024-04-13 08:00] VITALS: BP 133/72; PULSE 76; RESP 18; TEMP 36.9474; O2SAT 95
[2024-04-13 12:00] VITALS: BP 141/74; PULSE 78; RESP 18; TEMP 37.16964; O2SAT 96
[2024-04-13 16:00] VITALS: BP 132/69; PULSE 77; RESP 19; TEMP 36.72516; O2SAT 96
[2024-04-13 20:00] VITALS: BP 146/81; PULSE 81; RESP 18; TEMP 37.503; O2SAT 97
[2024-04-14] VITALS (9 sets, daily range): BP systolic 121–174; BP diastolic 66–90; PULSE 64–82; RESP 18–20; TEMP 35.78064–37.05852; O2SAT 94–99
[2024-04-14] MEDS: ACETAMINOPHEN 325MG TABLET PO PRN (13:10)
[2024-04-14] MEDS ORDERED: NALOXONE HCL 0.4MG/ML VIAL IV PRN (15:45)
[2024-04-14] MEDS: HYDROCODONE/ACETAMINOPHEN 5/325MG TABLET PO PRN (16:29)
[2024-04-15] VITALS: BP 146/76; PULSE 77; RESP 18; TEMP 36.00288; O2SAT 95
[2024-04-15 04:00] VITALS: BP 147/82; PULSE 84; RESP 18; TEMP 36.72516; O2SAT 96
[2024-04-15 08:00] VITALS: BP 144/78; PULSE 78; RESP 19; TEMP 36.50292; O2SAT 98
[2024-04-15 12:00] VITALS: BP 155/81; PULSE 73; RESP 20; TEMP 37.05852; O2SAT 96
[2024-04-15 16:00] VITALS: BP 138/72; PULSE 66; RESP 19; TEMP 36.05844; O2SAT 95
[2024-04-15 20:00] VITALS: BP 130/77; PULSE 70; RESP 18; TEMP 35.78064; O2SAT 95
[2024-04-16] VITALS (7 sets, daily range): BP systolic 122–146; BP diastolic 68–84; PULSE 67–77; RESP 18–20; TEMP 35.78064–36.6696; O2SAT 94–99
[2024-04-16] MEDS ORDERED: PSEUDOEPHEDRINE HCL 30MG TABLET PO PRN (11:00)
[2024-04-17] VITALS (7 sets, daily range): BP systolic 118–137; BP diastolic 56–71; PULSE 71–100; RESP 18–20; TEMP 36.114–37.00296; O2SAT 94–99
[2024-04-17] MEDS: IPRATROPIUM/ALBUTEROL 0.5-3(2.5)MG/3ML NEB HHN PRN (08:44)
[2024-04-17] MEDS: LIDOCAINE 5% PATCH TOP SCH (17:48)
[2024-04-18] VITALS (8 sets, daily range): BP systolic 121–135; BP diastolic 64–85; PULSE 70–83; RESP 18–19; TEMP 36.114–36.9474; O2SAT 94–96
[2024-04-19] VITALS (9 sets, daily range): BP systolic 129–144; BP diastolic 72–87; PULSE 72–85; RESP 17–20; TEMP 35.94732–37.05852; O2SAT 96–98
[2024-04-19] MEDS: IPRATROPIUM/ALBUTEROL 0.5-3(2.5)MG/3ML NEB HHN SCH (08:12)
[2024-04-20] VITALS (53 sets, daily range): BP systolic 73–217; BP diastolic 45–120; PULSE 34–92; RESP 12–33; TEMP 34.39164–37.00296; O2SAT 88–100
[2024-04-20] MEDS ORDERED: PHENYLEPHRINE 50MG/250ML PMX 250 ML IV PRN (15:15)
[2024-04-20 15:22] LABS: BG BASE EXCESS -9.2 mmol/L (-2.0-3.0); BG CARBOXYHEMOGLOBIN 0.1 % (0.5-1.5); BG DEOXYHEMOGLOBIN 0.8 % (0.0-5.0); BG FRACTION INSPIRED OXYGEN 100; BG OXYGEN SATURATION 99.2 % (94.0-98.0); BG OXYHEMOGLOBIN 99.1 % (94.0-98.0); BG PCO2 70.7 mmHg (32.0-45.0); BG PO2 203.8 mmHg (83.0-108.0); BG SAMPLE SITE RIGHT BRACHIAL; BG TOTAL HEMOGLOBIN 10.3 g/dL (12.0-16.0); BG TOTAL RESPIRATORY RATE 26 b/min; BG VENT MODE VENT-PRVC
[2024-04-20] MEDS ORDERED: ATROPINE SULFATE 1MG/10ML SYR IV PRN (15:45)
[2024-04-20] MEDS: NOREPINEPHRINE 8MG/250ML PMX 250 ML IV PRN (15:51)
[2024-04-20] MEDS: MIDAZOLAM 100MG/100ML PMX 100 ML IV PRN (15:53)
[2024-04-20] MEDS ORDERED: DOPAMINE 400MG/250ML PREMIX 250 ML IV PRN (16:00)
[2024-04-20 16:15] LABS: MEAN CORPUSCULAR HEMOGLOBIN 31.6 pg (28.0-32.0); MEAN CORPUSCULAR HGB CONC 32.3 g/dL (31.0-37.0); MEAN CORPUSCULAR VOLUME 97.7 fL (81.0-99.0); MEAN PLATELET VOLUME 8.7 fl (7.4-10.4); PLATELET 360 x1000/uL (130-400); RED BLOOD CELL COUNT 2.86 mill/uL (4.2-5.4); RED CELL DISTRIBUTION WIDTH 15.6 % (11.6-14.6); WHITE BLOOD COUNT 20.5 x1000/uL (4.5-11.0)
[2024-04-20 16:18] LABS: DIFFERENTIAL COMMENT 1
[2024-04-20 16:22] LABS: CARBON DIOXIDE 24 mEq/L (21-32); CHLORIDE 103 mEq/L (98-107); SODIUM 137 mEq/L (136-145)
[2024-04-20 16:23] LABS: CALCIUM 10.2 mg/dL (8.7-10.4)
[2024-04-20 16:27] LABS: GLUCOSE 129 mg/dL (70-105)
[2024-04-20 16:28] LABS: CREATINE KINASE MB FRACTION 13.1 ng/mL (0.5-3.6)
[2024-04-20 16:29] LABS: ALANINE AMINOTRANSFERASE 69 IU/L (10-49); ASPARTATE AMINOTRANSFERASE 139 IU/L (<34)
[2024-04-20 16:30] LABS: ALBUMIN 3.6 g/dL (3.2-4.8); BILIRUBIN TOTAL 0.5 mg/dL (0.1-1.0); PROTEIN TOTAL 7.4 g/dL (6.0-8.3)
[2024-04-20 16:32] LABS: INR 1.1; PARTIAL THROMBOPLASTIN TIME 30.8 sec (23.4-31.0); PROTHROMBIN TIME 11.8 sec (9.6-11.0)
[2024-04-20 16:36] LABS: POTASSIUM 8.1 mEq/L (3.5-5.1)
[2024-04-20 16:38] LABS: CREATININE 8.6 mg/dL (0.6-1.0)
[2024-04-20 16:39] LABS: UREA NITROGEN BLOOD 102 mg/dL (9-23)
[2024-04-20 16:40] LABS: PHOSPHORUS 13.7 mg/dL (2.5-4.9); TROPONIN I HIGH SENSITIVITY 37 ng/L (3.0-34)
[2024-04-20] MEDS: DEXTROSE 50% WATER 50ML SYRINGE IV NR (16:54)
[2024-04-20] MEDS: INSULIN REGULAR (HUMULIN R) 1000UNITS/10ML VIAL IV NR (16:54)
[2024-04-20] MEDS: CALCIUM CHLORIDE 1GM/10ML SYR IV NR (16:55)
[2024-04-20] MEDS: SODIUM BICARBONATE 8.4% 50MEQ/50ML SYR IV NR (16:55)
[2024-04-20] MEDS: SODIUM POLYSTYRENE SULFONATE 15 G/60 ML BOT PO NR (16:56)
[2024-04-20] MEDS: CALCIUM CHLORIDE 1GM/10ML SYR IV ONE (17:02)
[2024-04-20] MEDS ORDERED: CEFEPIME 2GM IN DEXT 5% 100ML IV SCH (17:15)
[2024-04-20] MEDS: PANTOPRAZOLE SODIUM 40 MG/VIAL IV SCH (17:19)
[2024-04-20] MEDS: PROPOFOL 10MG/ML 100ML 100 ML IV PRN (17:19)
[2024-04-20 17:57] LABS: PLATELET ESTIMATE NORMAL
[2024-04-20 19:48] LABS: IRON 124 ug/dL (50-170)
[2024-04-20 19:50] LABS: TOTAL IRON BINDING CAPACITY 286 ug/dl (250-425)
[2024-04-20] MEDS: DEXTROSE 50% WATER 50ML SYRINGE IV PRN (19:54)
[2024-04-20] MEDS: CEFEPIME 1GM/50ML 50 ML IV NR (20:51)
[2024-04-20 20:55] LABS: VITAMIN B12 SERUM 659 pg/mL (211-911)
[2024-04-20 21:05] LABS: FOLIC ACID (FOLATE) SERUM 9.25 ng/mL (>5.38)
[2024-04-20 21:13] LABS: FERRITIN 2225 ng/mL (10-291)
[2024-04-20 22:28] LABS: HEMATOCRIT 24.6 % (36.0-48.0); HEMOGLOBIN 8.1 g/dL (12.0-16.0)
[2024-04-20 22:34] LABS: CALCIUM 9.2 mg/dL (8.7-10.4)
[2024-04-20 22:37] LABS: BG BASE EXCESS 0.5 mmol/L (-2.0-3.0); BG CARBOXYHEMOGLOBIN 0.6 % (0.5-1.5); BG DEOXYHEMOGLOBIN 7.1 % (0.0-5.0); BG FRACTION INSPIRED OXYGEN 90; BG HCO3 ACT 26.8 mmol/L (21.0-28.0); BG METHEMOGLOBIN 0.3 % (0.5-1.5); BG OXYGEN SATURATION 92.8 % (94.0-98.0); BG PCO2 52.3 mmHg (32.0-45.0); BG PH 7.328 (7.350-7.450); BG SAMPLE SITE RIGHT RADIAL; BG TOTAL HEMOGLOBIN 8.6 g/dL (12.0-16.0); BG VENT MODE VENT - P/C
[2024-04-20 22:37] LABS: POTASSIUM 5.4 mEq/L (3.5-5.1)
[2024-04-20 22:43] LABS: CREATININE 5.4 mg/dL (0.6-1.0)
[2024-04-20 22:55] LABS: HEPATITIS B SURFACE ANTIGEN NEGATIVE (Negative)
[2024-04-20 23:16] LABS: HEPATITIS A AB IGM NEGATIVE (Negative); HEPATITIS B CORE AB IGM NEGATIVE (Negative)
[2024-04-20 23:17] LABS: HEPATITIS C AB NON REACTIVE (Neg) (Negative)
[2024-04-21] VITALS (100 sets, daily range): BP systolic 93–167; BP diastolic 59–91; PULSE 66–102; RESP 15–30; TEMP 34.725–36.89184; O2SAT 88–100
[2024-04-21] MEDS ORDERED: SODIUM POLYSTYRENE SULFONATE 15 G/60 ML BOT PO ONE (06:15)
[2024-04-21 06:31] LABS: HEMATOCRIT 24.8 % (36.0-48.0); HEMATOCRIT. 24.8 % (36.0-48.0); HEMOGLOBIN 8.2 g/dL (12.0-16.0); HEMOGLOBIN. 8.2 g/dL (12.0-16.0); MEAN CORPUSCULAR HEMOGLOBIN 31.3 pg (28.0-32.0); MEAN CORPUSCULAR VOLUME 94.8 fL (81.0-99.0); PLATELET 244 x1000/uL (130-400); RED BLOOD CELL COUNT 2.62 mill/uL (4.2-5.4); RED CELL DISTRIBUTION WIDTH 15.8 % (11.6-14.6)
[2024-04-21 06:34] LABS: CHLORIDE 103 mEq/L (98-107); SODIUM 139 mEq/L (136-145)
[2024-04-21 06:35] LABS: CALCIUM 9.4 mg/dL (8.7-10.4); CARBON DIOXIDE 26 mEq/L (21-32)
[2024-04-21 06:37] LABS: INR 1.2
[2024-04-21 06:39] LABS: TRIGLYCERIDE 36 mg/dL (0-150)
[2024-04-21 06:40] LABS: GLUCOSE 53 mg/dL (70-105); UREA NITROGEN BLOOD 67 mg/dL (9-23)
[2024-04-21 06:42] LABS: ALANINE AMINOTRANSFERASE 56 IU/L (10-49); ALBUMIN 3.5 g/dL (3.2-4.8); ASPARTATE AMINOTRANSFERASE 91 IU/L (<34); BILIRUBIN DIRECT 0.3 mg/dL (<=3.0); PHOSPHORUS 7.5 mg/dL (2.5-4.9)
[2024-04-21 06:43] LABS: BILIRUBIN TOTAL 0.7 mg/dL (0.1-1.0); PROTEIN TOTAL 6.8 g/dL (6.0-8.3)
[2024-04-21 06:56] LABS: DIFFERENTIAL COMMENT 1
[2024-04-21] MEDS: DEXT 5%/0.45% NACL 1000ML 1,000 ML IV SCH (06:58)
[2024-04-21] MEDS: SODIUM ZIRCONIUM CYCLOSILICATE 10GM/PACKET PO NR (06:59)
[2024-04-21 07:06] LABS: CREATININE 6.1 mg/dL (0.6-1.0)
[2024-04-21 07:10] LABS: POTASSIUM 6.3 mEq/L (3.5-5.1)
[2024-04-21] MEDS: DEXTROSE 50% WATER 50ML SYRINGE IV NR (08:25)
[2024-04-21] MEDS: INSULIN REGULAR (HUMULIN R) 1000UNITS/10ML VIAL IV NR (08:26)
[2024-04-21] MEDS: SODIUM BICARBONATE 8.4% 50MEQ/50ML SYR IV NR (08:26)
[2024-04-21 08:58] LABS: BG BASE EXCESS -0.5 mmol/L (-2.0-3.0); BG CARBOXYHEMOGLOBIN 1.7 % (0.5-1.5); BG DEOXYHEMOGLOBIN 6.1 % (0.0-5.0); BG FRACTION INSPIRED OXYGEN 45; BG HCO3 ACT 23.6 mmol/L (21.0-28.0); BG METHEMOGLOBIN 0.1 % (0.5-1.5); BG OXYGEN SATURATION 93.8 % (94.0-98.0); BG OXYHEMOGLOBIN 92.1 % (94.0-98.0); BG PCO2 36.6 mmHg (32.0-45.0); BG PH 7.428 (7.350-7.450); BG PO2 71.4 mmHg (83.0-108.0); BG SAMPLE SITE RIGHT RADIAL; BG TOTAL HEMOGLOBIN 8.2 g/dL (12.0-16.0); BG VENT MODE VENT - AC/PC
[2024-04-21] MEDS: CALCIUM GLUCONATE 100MG/ML 10ML VIAL IV NR (09:02)
[2024-04-21] MEDS: DEXTROSE 50% WATER 50ML SYRINGE IV PRN (10:36)
[2024-04-21 15:49] LABS: ANISOCYTOSIS 1+; PLATELET ESTIMATE NORMAL
[2024-04-21] MEDS: HEPARIN 1000 UNITS/ML 10ML ONE (21:30)
[2024-04-21] MEDS: LIDOCAINE HCL 1% 10 MG/ML 10ML VIAL ONE (21:31)
[2024-04-22] VITALS (98 sets, daily range): BP systolic 130–153; BP diastolic 71–116; PULSE 75–106; RESP 14–26; TEMP 36.3918–37.00296; O2SAT 99–100
[2024-04-22] MEDS ORDERED: PROPOFOL 10MG/ML 100ML 100 ML IV PRN (04:45)
[2024-04-22 05:38] LABS: HEMATOCRIT. 23.3 % (36.0-48.0); HEMOGLOBIN. 7.6 g/dL (12.0-16.0); MEAN CORPUSCULAR HEMOGLOBIN 30.9 pg (28.0-32.0); MEAN CORPUSCULAR HGB CONC 32.6 g/dL (31.0-37.0); MEAN CORPUSCULAR VOLUME 94.8 fL (81.0-99.0); MEAN PLATELET VOLUME 8.7 fl (7.4-10.4); PLATELET 236 x1000/uL (130-400); RED BLOOD CELL COUNT 2.45 mill/uL (4.2-5.4); RED CELL DISTRIBUTION WIDTH 16.1 % (11.6-14.6); WHITE BLOOD COUNT 11.9 x1000/uL (4.5-11.0)
[2024-04-22] MEDS: PROPOFOL 10MG/ML 100ML 100 ML IV PRN (05:45)
[2024-04-22 05:53] LABS: CHLORIDE 101 mEq/L (98-107); POTASSIUM 4.2 mEq/L (3.5-5.1); SODIUM 137 mEq/L (136-145)
[2024-04-22 05:55] LABS: CARBON DIOXIDE 25 mEq/L (21-32)
[2024-04-22 05:56] LABS: CALCIUM 8.2 mg/dL (8.7-10.4)
[2024-04-22 06:01] LABS: GLUCOSE 123 mg/dL (70-105); UREA NITROGEN BLOOD 53 mg/dL (9-23)
[2024-04-22 06:02] LABS: ALANINE AMINOTRANSFERASE 67 IU/L (10-49); ASPARTATE AMINOTRANSFERASE 79 IU/L (<34)
[2024-04-22 06:03] LABS: PHOSPHORUS 5.6 mg/dL (2.5-4.9); PROTEIN TOTAL 6.4 g/dL (6.0-8.3)
[2024-04-22 06:18] LABS: CREATININE 5.1 mg/dL (0.6-1.0); DIFFERENTIAL COMMENT 1
[2024-04-22 09:11] LABS: BG BASE EXCESS 1.2 mmol/L (-2.0-3.0); BG CARBOXYHEMOGLOBIN 1.3 % (0.5-1.5); BG DEOXYHEMOGLOBIN 0.4 % (0.0-5.0); BG FRACTION INSPIRED OXYGEN 60; BG HCO3 ACT 23.9 mmol/L (21.0-28.0); BG METHEMOGLOBIN 0.3 % (0.5-1.5); BG OXYGEN SATURATION 99.6 % (94.0-98.0); BG PO2 161.3 mmHg (83.0-108.0); BG SAMPLE SITE RIGHT BRACHIAL; BG TOTAL HEMOGLOBIN 7.6 g/dL (12.0-16.0); BG VENT MODE VENT - AC/PC
[2024-04-22 09:51] LABS: ANISOCYTOSIS 1+; PLATELET ESTIMATE NORMAL
[2024-04-22 15:37] LABS: BG BASE EXCESS 0.7 mmol/L (-2.0-3.0); BG CARBOXYHEMOGLOBIN 0.7 % (0.5-1.5); BG DEOXYHEMOGLOBIN 0.9 % (0.0-5.0); BG FRACTION INSPIRED OXYGEN 45; BG METHEMOGLOBIN 0.3 % (0.5-1.5); BG OXYGEN SATURATION 99.1 % (94.0-98.0); BG OXYHEMOGLOBIN 98.1 % (94.0-98.0); BG PCO2 32.8 mmHg (32.0-45.0); BG PH 7.482 (7.350-7.450); BG PO2 132.7 mmHg (83.0-108.0); BG SAMPLE SITE RIGHT RADIAL; BG VENT MODE VENT - AC
[2024-04-23] VITALS (98 sets, daily range): BP systolic 133–179; BP diastolic 72–157; PULSE 72–117; RESP 13–31; TEMP 36.3918; O2SAT 95–100
[2024-04-23 04:58] LABS: CHLORIDE 100 mEq/L (98-107); POTASSIUM 4.4 mEq/L (3.5-5.1); SODIUM 135 mEq/L (136-145)
[2024-04-23 04:59] LABS: HEMOGLOBIN. 7.6 g/dL (12.0-16.0); MEAN CORPUSCULAR HEMOGLOBIN 31.1 pg (28.0-32.0); MEAN CORPUSCULAR HGB CONC 32.9 g/dL (31.0-37.0); MEAN CORPUSCULAR VOLUME 94.4 fL (81.0-99.0); MEAN PLATELET VOLUME 8.7 fl (7.4-10.4); PLATELET 235 x1000/uL (130-400); RED BLOOD CELL COUNT 2.43 mill/uL (4.2-5.4); RED CELL DISTRIBUTION WIDTH 15.5 % (11.6-14.6); WHITE BLOOD COUNT 12.2 x1000/uL (4.5-11.0)
[2024-04-23 05:01] LABS: CARBON DIOXIDE 23 mEq/L (21-32)
[2024-04-23 05:02] LABS: CALCIUM 8.1 mg/dL (8.7-10.4)
[2024-04-23 05:06] LABS: GLUCOSE 131 mg/dL (70-105)
[2024-04-23 05:07] LABS: ALANINE AMINOTRANSFERASE 44 IU/L (10-49); TRIGLYCERIDE 85 mg/dL (0-150); UREA NITROGEN BLOOD 59 mg/dL (9-23)
[2024-04-23 05:08] LABS: ASPARTATE AMINOTRANSFERASE 30 IU/L (<34)
[2024-04-23 05:09] LABS: BILIRUBIN TOTAL 0.9 mg/dL (0.1-1.0); PHOSPHORUS 6.9 mg/dL (2.5-4.9); PROTEIN TOTAL 6.5 g/dL (6.0-8.3)
[2024-04-23 05:44] LABS: CREATININE 5.6 mg/dL (0.6-1.0)
[2024-04-23 06:03] LABS: DIFFERENTIAL COMMENT 1
[2024-04-23] MEDS: PROPOFOL 10MG/ML 100ML 100 ML IV PRN (06:39)
[2024-04-23 08:38] LABS: BG BASE EXCESS -1.9 mmol/L (-2.0-3.0); BG CARBOXYHEMOGLOBIN 1.2 % (0.5-1.5); BG DEOXYHEMOGLOBIN 2.3 % (0.0-5.0); BG FRACTION INSPIRED OXYGEN 40; BG HCO3 ACT 20.7 mmol/L (21.0-28.0); BG OXYGEN SATURATION 97.7 % (94.0-98.0); BG OXYHEMOGLOBIN 96.5 % (94.0-98.0); BG PCO2 27.1 mmHg (32.0-45.0); BG PH 7.501 (7.350-7.450); BG PO2 95.8 mmHg (83.0-108.0); BG SAMPLE SITE LEFT RADIAL; BG TOTAL HEMOGLOBIN 7.9 g/dL (12.0-16.0); BG TOTAL RESPIRATORY RATE 26 b/min; BG VENT MODE VENT - AC
[2024-04-23 12:02] LABS: ANISOCYTOSIS 1+; PLATELET ESTIMATE NORMAL
[2024-04-23] MEDS: METOCLOPRAMIDE HCL 10MG/2ML VIAL IV SCH (13:50)
[2024-04-24] VITALS (85 sets, daily range): BP systolic 127–205; BP diastolic 63–155; PULSE 68–84; RESP 9–30; TEMP 36.72516–36.83628; O2SAT 96–100
[2024-04-24] MEDS ORDERED: MORPHINE SULFATE 250 MG in SODIUM CHLORIDE 0.9% 225 ML IV PRN (06:00)
[2024-04-24 06:04] LABS: CHLORIDE 100 mEq/L (98-107); POTASSIUM 3.6 mEq/L (3.5-5.1); SODIUM 133 mEq/L (136-145)
[2024-04-24 06:05] LABS: CALCIUM 8.4 mg/dL (8.7-10.4); CARBON DIOXIDE 24 mEq/L (21-32)
[2024-04-24 06:10] LABS: HEMATOCRIT. 22.4 % (36.0-48.0); HEMOGLOBIN. 7.7 g/dL (12.0-16.0); MEAN CORPUSCULAR HEMOGLOBIN 32.4 pg (28.0-32.0); MEAN CORPUSCULAR HGB CONC 34.3 g/dL (31.0-37.0); MEAN CORPUSCULAR VOLUME 94.4 fL (81.0-99.0); PLATELET 244 x1000/uL (130-400); RED BLOOD CELL COUNT 2.38 mill/uL (4.2-5.4); RED CELL DISTRIBUTION WIDTH 14.8 % (11.6-14.6); WHITE BLOOD COUNT 9.3 x1000/uL (4.5-11.0)
[2024-04-24 06:10] LABS: CREATININE 4.3 mg/dL (0.6-1.0); GLUCOSE 135 mg/dL (70-105); TRIGLYCERIDE 108 mg/dL (0-150); UREA NITROGEN BLOOD 40 mg/dL (9-23)
[2024-04-24 06:12] LABS: PHOSPHORUS 5.9 mg/dL (2.5-4.9)
[2024-04-24] MEDS ORDERED: MORPHINE SULFATE 250 MG in DEXT 5% WATER 225 ML IV PRN (06:15)
[2024-04-24 06:59] LABS: DIFFERENTIAL COMMENT 1
[2024-04-24 08:50] LABS: PLATELET ESTIMATE NORMAL
[2024-04-24] MEDS: LIDOCAINE HCL 1% 10 MG/ML 10ML VIAL ONE (09:03)
[2024-04-24 09:25] LABS: BG BASE EXCESS 0.4 mmol/L (-2.0-3.0); BG CARBOXYHEMOGLOBIN 1.3 % (0.5-1.5); BG DEOXYHEMOGLOBIN 2.5 % (0.0-5.0); BG FRACTION INSPIRED OXYGEN 40; BG OXYGEN SATURATION 97.5 % (94.0-98.0); BG OXYHEMOGLOBIN 96.2 % (94.0-98.0); BG PCO2 34.3 mmHg (32.0-45.0); BG PH 7.463 (7.350-7.450); BG PO2 99.2 mmHg (83.0-108.0); BG SAMPLE SITE LEFT RADIAL; BG TOTAL RESPIRATORY RATE 29 b/min; BG VENT MODE VENT - SIMV
[2024-04-24] MEDS: FENTANYL CITRATE/PF 50MCG/ML 2ML VIAL IV PRN (23:09)
[2024-04-25] VITALS (103 sets, daily range): BP systolic 87–181; BP diastolic 49–121; PULSE 63–85; RESP 12–25; TEMP 34.89168–37.00296; O2SAT 55–100
[2024-04-25 05:49] LABS: HEMATOCRIT. 23.3 % (36.0-48.0); HEMOGLOBIN. 7.7 g/dL (12.0-16.0); MEAN CORPUSCULAR HEMOGLOBIN 31.1 pg (28.0-32.0); MEAN CORPUSCULAR VOLUME 94.5 fL (81.0-99.0); MEAN PLATELET VOLUME 9.2 fl (7.4-10.4); PLATELET 244 x1000/uL (130-400); RED BLOOD CELL COUNT 2.47 mill/uL (4.2-5.4); RED CELL DISTRIBUTION WIDTH 14.5 % (11.6-14.6); WHITE BLOOD COUNT 9.7 x1000/uL (4.5-11.0)
[2024-04-25 06:09] LABS: DIFFERENTIAL COMMENT 1
[2024-04-25 06:47] LABS: POTASSIUM 3.6 mEq/L (3.5-5.1)
[2024-04-25 06:48] LABS: CALCIUM 8.2 mg/dL (8.7-10.4)
[2024-04-25 06:53] LABS: CREATININE 4.9 mg/dL (0.6-1.0)
[2024-04-25] MEDS ORDERED: FENTANYL CITRATE/PF 50MCG/ML 2ML VIAL IV PRN (07:30)
[2024-04-25] MEDS ORDERED: LORAZEPAM 2MG/ML INJ IV PRN (08:45)
[2024-04-25 09:33] LABS: BG BASE EXCESS -2.6 mmol/L (-2.0-3.0); BG CARBOXYHEMOGLOBIN 1.6 % (0.5-1.5); BG DEOXYHEMOGLOBIN 1.5 % (0.0-5.0); BG FRACTION INSPIRED OXYGEN 40; BG HCO3 ACT 21.7 mmol/L (21.0-28.0); BG METHEMOGLOBIN 0.1 % (0.5-1.5); BG OXYGEN SATURATION 98.5 % (94.0-98.0); BG OXYHEMOGLOBIN 96.8 % (94.0-98.0); BG PCO2 34.9 mmHg (32.0-45.0); BG PH 7.411 (7.350-7.450); BG PO2 112.5 mmHg (83.0-108.0); BG SAMPLE SITE RIGHT RADIAL; BG VENT MODE VENT - SIMV
[2024-04-25 13:16] LABS: BG BASE EXCESS -3.6 mmol/L (-2.0-3.0); BG CARBOXYHEMOGLOBIN 1.2 % (0.5-1.5); BG DEOXYHEMOGLOBIN 3.3 % (0.0-5.0); BG FRACTION INSPIRED OXYGEN 40; BG HCO3 ACT 21.8 mmol/L (21.0-28.0); BG METHEMOGLOBIN 0.2 % (0.5-1.5); BG OXYGEN SATURATION 96.7 % (94.0-98.0); BG OXYHEMOGLOBIN 95.3 % (94.0-98.0); BG PCO2 40.8 mmHg (32.0-45.0); BG PH 7.345 (7.350-7.450); BG PO2 94.4 mmHg (83.0-108.0); BG SAMPLE SITE RIGHT RADIAL; BG TOTAL HEMOGLOBIN 8.3 g/dL (12.0-16.0); BG VENT MODE VENT - CPAP
[2024-04-25] MEDS: MORPHINE SULFATE 2 MG/ML INJ (NOT FOR IM USE) IV PRN (13:30)
[2024-04-25] MEDS ORDERED: RACEPINEPHRINE 2.25% 0.5ML NEB VIAL HHN PRN (15:30)
[2024-04-25] MEDS ORDERED: NALOXONE HCL 0.4MG/ML VIAL IV PRN (15:45)
[2024-04-25 16:31] LABS: PLATELET ESTIMATE NORMAL
[2024-04-25] MEDS: VANCOMYCIN 1.25GM PMX (XELLIA) 250 ML IV NR (17:55)
[2024-04-25] MEDS: METHYLPREDNISOLONE SOD SUCC 125MG/2ML (ACT-O-VIAL) IV NR (18:29)
[2024-04-25] MEDS: KETOROLAC 15MG/ML VIAL IV NR (19:47)
[2024-04-25 20:20] LABS: BG BASE EXCESS -3.2 mmol/L (-2.0-3.0); BG CARBOXYHEMOGLOBIN 0.9 % (0.5-1.5); BG FRACTION INSPIRED OXYGEN 100; BG HCO3 ACT 26.9 mmol/L (21.0-28.0); BG METHEMOGLOBIN 0.2 % (0.5-1.5); BG OXYHEMOGLOBIN 96.9 % (94.0-98.0); BG PCO2 70.6 mmHg (32.0-45.0); BG PH 7.199 (7.350-7.450); BG PO2 129.4 mmHg (83.0-108.0); BG SAMPLE SITE RIGHT RADIAL; BG TOTAL HEMOGLOBIN 16.6 g/dL (12.0-16.0); BG VENT MODE MASK - BIPAP
[2024-04-25 23:15] LABS: BG BASE EXCESS -1.3 mmol/L (-2.0-3.0); BG CARBOXYHEMOGLOBIN 0.3 % (0.5-1.5); BG DEOXYHEMOGLOBIN 2.4 % (0.0-5.0); BG FRACTION INSPIRED OXYGEN 100; BG METHEMOGLOBIN 0.3 % (0.5-1.5); BG OXYGEN SATURATION 97.6 % (94.0-98.0); BG PCO2 36.9 mmHg (32.0-45.0); BG PH 7.413 (7.350-7.450); BG PO2 94.7 mmHg (83.0-108.0); BG SAMPLE SITE RIGHT RADIAL; BG TOTAL HEMOGLOBIN 8.9 g/dL (12.0-16.0); BG VENT MODE VENT - AC
[2024-04-26] VITALS (108 sets, daily range): BP systolic 97–151; BP diastolic 60–87; PULSE 64–99; RESP 15–30; TEMP 34.94724–38.0586; O2SAT 99–100
[2024-04-26] MEDS: IPRATROPIUM/ALBUTEROL 0.5-3(2.5)MG/3ML NEB HHN SCH (00:36)
[2024-04-26] MEDS: PROPOFOL 10MG/ML 100ML 100 ML IV PRN ×2 (04:21→23:44)
[2024-04-26 06:33] LABS: HEMATOCRIT. 25.8 % (36.0-48.0); HEMOGLOBIN. 8.2 g/dL (12.0-16.0); MEAN CORPUSCULAR HGB CONC 31.9 g/dL (31.0-37.0); MEAN CORPUSCULAR VOLUME 94.1 fL (81.0-99.0); MEAN PLATELET VOLUME 9.4 fl (7.4-10.4); PLATELET 265 x1000/uL (130-400); RED BLOOD CELL COUNT 2.74 mill/uL (4.2-5.4); WHITE BLOOD COUNT 24.5 x1000/uL (4.5-11.0)
[2024-04-26 06:58] LABS: DIFFERENTIAL COMMENT 1
[2024-04-26 10:03] LABS: CALCIUM 7.9 mg/dL (8.7-10.4)
[2024-04-26 10:08] LABS: CREATININE 4.1 mg/dL (0.6-1.0)
[2024-04-26] MEDS ORDERED: CEFEPIME 1GM IN DEXT 5% 50ML IV SCH (10:45)
[2024-04-26] MEDS: CEFEPIME 1GM/50ML 50 ML IV SCH (12:37)
[2024-04-26 13:10] LABS: BG BASE EXCESS -3.9 mmol/L (-2.0-3.0); BG CARBOXYHEMOGLOBIN 1.5 % (0.5-1.5); BG DEOXYHEMOGLOBIN 0.3 % (0.0-5.0); BG FRACTION INSPIRED OXYGEN 70; BG HCO3 ACT 19.4 mmol/L (21.0-28.0); BG METHEMOGLOBIN 0.3 % (0.5-1.5); BG OXYGEN SATURATION 99.7 % (94.0-98.0); BG OXYHEMOGLOBIN 97.9 % (94.0-98.0); BG PCO2 28.2 mmHg (32.0-45.0); BG PH 7.455 (7.350-7.450); BG PO2 266.4 mmHg (83.0-108.0); BG SAMPLE SITE RIGHT RADIAL; BG TOTAL HEMOGLOBIN 7.6 g/dL (12.0-16.0); BG VENT MODE VENT - AC/PC
[2024-04-26 14:39] LABS: ANISOCYTOSIS 1+; PLATELET ESTIMATE NORMAL
[2024-04-26] MEDS: EPOETIN ALFA-EPBX 4,000 UNIT/ML VIAL SUBCUT SCH (21:06)
[2024-04-26] MEDS: ACETYLCYSTEINE 200MG/ML 20% VIAL 4ML INH SCH (22:13)
[2024-04-27] VITALS (110 sets, daily range): BP systolic 98–142; BP diastolic 57–83; PULSE 57–110; RESP 0–22; TEMP 36.22512–37.00296; O2SAT 98–100
[2024-04-27 08:49] LABS: POTASSIUM 3.4 mEq/L (3.5-5.1)
[2024-04-27 08:55] LABS: CREATININE 4.8 mg/dL (0.6-1.0)
[2024-04-27 10:15] LABS: MEAN CORPUSCULAR HEMOGLOBIN 30.1 pg (28.0-32.0); MEAN CORPUSCULAR HGB CONC 32.3 g/dL (31.0-37.0); MEAN CORPUSCULAR VOLUME 93.4 fL (81.0-99.0); MEAN PLATELET VOLUME 9.3 fl (7.4-10.4); PLATELET 266 x1000/uL (130-400); RED CELL DISTRIBUTION WIDTH 15.4 % (11.6-14.6); WHITE BLOOD COUNT 15.1 x1000/uL (4.5-11.0)
[2024-04-27 10:20] LABS: DIFFERENTIAL COMMENT 1
[2024-04-27 10:21] LABS: HEMATOCRIT. 21.5 % (36.0-48.0); HEMOGLOBIN. 6.9 g/dL (12.0-16.0)
[2024-04-27 15:59] LABS: TROPONIN I HIGH SENSITIVITY 117 ng/L (3.0-34)
[2024-04-27] MEDS: CEFEPIME 1GM/50ML 50 ML IV SCH (22:30)
[2024-04-28] VITALS (105 sets, daily range): BP systolic 109–157; BP diastolic 60–91; PULSE 78–104; RESP 10–27; TEMP 36.3918–37.39188; O2SAT 92–100
[2024-04-28 01:42] LABS: PLATELET ESTIMATE NORMAL
[2024-04-28 04:49] LABS: BASOPHILS % 0.2 % (0.0-2.0); EOSINOPHILS % 0.6 % (0.0-5.0); HEMATOCRIT. 25.5 % (36.0-48.0); HEMOGLOBIN. 8.9 g/dL (12.0-16.0); LYMPHOCYTES % 2.7 % (20.0-50.0); MEAN CORPUSCULAR HEMOGLOBIN 31.4 pg (28.0-32.0); MEAN CORPUSCULAR HGB CONC 34.9 g/dL (31.0-37.0); MEAN CORPUSCULAR VOLUME 90.1 fL (81.0-99.0); MEAN PLATELET VOLUME 9.1 fl (7.4-10.4); MONOCYTES % 5.8 % (2.0-8.0); NEUTROPHILS % 90.7 % (40.0-76.0); PLATELET 280 x1000/uL (130-400); RED BLOOD CELL COUNT 2.83 mill/uL (4.2-5.4); RED CELL DISTRIBUTION WIDTH 15.3 % (11.6-14.6); WHITE BLOOD COUNT 15.3 x1000/uL (4.5-11.0)
[2024-04-28 04:51] LABS: DIFFERENTIAL COMMENT 1
[2024-04-28 04:57] LABS: POTASSIUM 3.2 mEq/L (3.5-5.1)
[2024-04-28 04:58] LABS: CALCIUM 7.7 mg/dL (8.7-10.4)
[2024-04-28 05:03] LABS: CREATININE 3.7 mg/dL (0.6-1.0)
[2024-04-28] MEDS: PROPOFOL 10MG/ML 100ML 100 ML IV PRN (05:33)
[2024-04-28 08:10] LABS: BG BASE EXCESS -0.1 mmol/L (-2.0-3.0); BG CARBOXYHEMOGLOBIN 0.6 % (0.5-1.5); BG DEOXYHEMOGLOBIN 0.5 % (0.0-5.0); BG METHEMOGLOBIN 0.3 % (0.5-1.5); BG OXYGEN SATURATION 99.5 % (94.0-98.0); BG OXYHEMOGLOBIN 98.6 % (94.0-98.0); BG PCO2 26.7 mmHg (32.0-45.0); BG PH 7.534 (7.350-7.450); BG PO2 165.4 mmHg (83.0-108.0); BG SAMPLE SITE RIGHT RADIAL; BG TOTAL HEMOGLOBIN 8.3 g/dL (12.0-16.0); BG VENT MODE VENT - P/C
[2024-04-28] MEDS: KCL 20MEQ/100ML PREMIX 100 ML IV NR ×2 (08:47→14:23)
[2024-04-28 09:32] LABS: HEMATOCRIT 26.1 % (36.0-48.0); HEMOGLOBIN 8.7 g/dL (12.0-16.0); MEAN CORPUSCULAR HEMOGLOBIN 30.4 pg (28.0-32.0); MEAN CORPUSCULAR HGB CONC 33.4 g/dL (31.0-37.0); MEAN CORPUSCULAR VOLUME 91.1 fL (81.0-99.0); PLATELET 273 x1000/uL (130-400); RED BLOOD CELL COUNT 2.87 mill/uL (4.2-5.4); RED CELL DISTRIBUTION WIDTH 15.9 % (11.6-14.6); WHITE BLOOD COUNT 13.2 x1000/uL (4.5-11.0)
[2024-04-28 09:46] LABS: POTASSIUM 3.3 mEq/L (3.5-5.1)
[2024-04-28 09:48] LABS: CALCIUM 7.9 mg/dL (8.7-10.4)
[2024-04-28 09:52] LABS: CREATININE 3.9 mg/dL (0.6-1.0)
[2024-04-28] MEDS: KETOROLAC 15MG/ML VIAL IV NR (21:21)
[2024-04-29] VITALS (105 sets, daily range): BP systolic 76–139; BP diastolic 50–82; PULSE 63–96; RESP 3–31; TEMP 36.33624–37.39188; O2SAT 89–100
[2024-04-29 08:23] LABS: BG BASE EXCESS -2.5 mmol/L (-2.0-3.0); BG CARBOXYHEMOGLOBIN 0.9 % (0.5-1.5); BG DEOXYHEMOGLOBIN 5.1 % (0.0-5.0); BG HCO3 ACT 21.3 mmol/L (21.0-28.0); BG METHEMOGLOBIN 0.3 % (0.5-1.5); BG OXYGEN SATURATION 94.8 % (94.0-98.0); BG OXYHEMOGLOBIN 93.7 % (94.0-98.0); BG PCO2 32.6 mmHg (32.0-45.0); BG PH 7.434 (7.350-7.450); BG SAMPLE SITE RIGHT RADIAL; BG TOTAL HEMOGLOBIN 8.1 g/dL (12.0-16.0); BG VENT MODE VENT - SIMV
[2024-04-29 11:12] LABS: HEMATOCRIT. 24.2 % (36.0-48.0); HEMOGLOBIN. 7.8 g/dL (12.0-16.0); MEAN CORPUSCULAR HEMOGLOBIN 31.2 pg (28.0-32.0); MEAN CORPUSCULAR HGB CONC 32.4 g/dL (31.0-37.0); MEAN CORPUSCULAR VOLUME 96.3 fL (81.0-99.0); MEAN PLATELET VOLUME 8.9 fl (7.4-10.4); PLATELET 261 x1000/uL (130-400); RED BLOOD CELL COUNT 2.51 mill/uL (4.2-5.4); RED CELL DISTRIBUTION WIDTH 16.5 % (11.6-14.6); WHITE BLOOD COUNT 11.8 x1000/uL (4.5-11.0)
[2024-04-29 11:13] LABS: DIFFERENTIAL COMMENT 1
[2024-04-29 11:31] LABS: POTASSIUM 3.9 mEq/L (3.5-5.1)
[2024-04-29 11:37] LABS: CREATININE 4.5 mg/dL (0.6-1.0)
[2024-04-29] MEDS: DEXT 5%/0.9% NACL 1,000 ML IV SCH (13:25)
[2024-04-29] MEDS: PROPOFOL 10MG/ML 100ML 100 ML IV PRN (13:26)
[2024-04-29 14:01] LABS: ANISOCYTOSIS 1+; PLATELET ESTIMATE NORMAL
[2024-04-30] VITALS (103 sets, daily range): BP systolic 113–140; BP diastolic 59–113; PULSE 76–94; RESP 12–29; TEMP 36.55848–37.7808; O2SAT 91–100
[2024-04-30 05:43] LABS: HEMATOCRIT. 21.4 % (36.0-48.0); HEMOGLOBIN. 7.2 g/dL (12.0-16.0); MEAN CORPUSCULAR HEMOGLOBIN 31.3 pg (28.0-32.0); MEAN CORPUSCULAR HGB CONC 33.4 g/dL (31.0-37.0); MEAN CORPUSCULAR VOLUME 93.4 fL (81.0-99.0); MEAN PLATELET VOLUME 9.4 fl (7.4-10.4); PLATELET 264 x1000/uL (130-400); RED BLOOD CELL COUNT 2.29 mill/uL (4.2-5.4); RED CELL DISTRIBUTION WIDTH 15.7 % (11.6-14.6)
[2024-04-30 06:32] LABS: DIFFERENTIAL COMMENT 1
[2024-04-30 10:43] LABS: POTASSIUM 4.3 mEq/L (3.5-5.1)
[2024-04-30 10:44] LABS: CALCIUM 7.8 mg/dL (8.7-10.4)
[2024-04-30 10:49] LABS: CREATININE 4.9 mg/dL (0.6-1.0)
[2024-04-30 13:28] LABS: NUCLEATED RED BLOOD CELLS 1 /100 WBC
[2024-04-30 13:30] LABS: ANISOCYTOSIS 1+; PLATELET ESTIMATE NORMAL
[2024-04-30] MEDS ORDERED: AMIKACIN SULFATE 250 MG in SODIUM CHLORIDE 0.9% 100 ML IV NR (16:30)
[2024-04-30] MEDS: AMIKACIN SULFATE 250 MG in SODIUM CHLORIDE 0.9% 100 ML IV NR (16:53)
[2024-04-30] MEDS: MEROPENEM 500MG/50ML 50 ML IV SCH (16:53)
[2024-04-30] MEDS: PROPOFOL 10MG/ML 100ML 100 ML IV PRN (17:14)
[2024-04-30] MEDS: VANCOMYCIN 500MG PREMIX 100 ML IV SCH (21:14)
[2024-05-01] VITALS (105 sets, daily range): BP systolic 111–141; BP diastolic 68–114; PULSE 64–91; RESP 7–25; TEMP 35.5584–37.2252; O2SAT 93–100
[2024-05-01 06:24] LABS: HEMATOCRIT. 22.9 % (36.0-48.0); HEMOGLOBIN. 7.4 g/dL (12.0-16.0); MEAN CORPUSCULAR HEMOGLOBIN 30.5 pg (28.0-32.0); MEAN CORPUSCULAR HGB CONC 32.3 g/dL (31.0-37.0); MEAN CORPUSCULAR VOLUME 94.5 fL (81.0-99.0); MEAN PLATELET VOLUME 9.2 fl (7.4-10.4); PLATELET 307 x1000/uL (130-400); RED BLOOD CELL COUNT 2.43 mill/uL (4.2-5.4); RED CELL DISTRIBUTION WIDTH 15.5 % (11.6-14.6); WHITE BLOOD COUNT 18.4 x1000/uL (4.5-11.0)
[2024-05-01 06:27] LABS: CHLORIDE 104 mEq/L (98-107); POTASSIUM 3.8 mEq/L (3.5-5.1); SODIUM 136 mEq/L (136-145)
[2024-05-01 06:28] LABS: CALCIUM 8.5 mg/dL (8.7-10.4); CARBON DIOXIDE 24 mEq/L (21-32)
[2024-05-01 06:33] LABS: GLUCOSE 191 mg/dL (70-105); TRIGLYCERIDE 161 mg/dL (0-150); UREA NITROGEN BLOOD 43 mg/dL (9-23)
[2024-05-01 06:37] LABS: TROPONIN I HIGH SENSITIVITY 30 ng/L (3.0-34)
[2024-05-01 06:48] LABS: DIFFERENTIAL COMMENT 1
[2024-05-01] MEDS: IPRATROPIUM/ALBUTEROL 0.5-3(2.5)MG/3ML NEB HHN PRN (08:15)
[2024-05-01 20:37] LABS: PLATELET ESTIMATE NORMAL
[2024-05-01 22:10] LABS: PHOSPHORUS 3.6 mg/dL (2.5-4.9)
[2024-05-02] VITALS (94 sets, daily range): BP systolic 120–147; BP diastolic 69–92; PULSE 80–96; RESP 9–27; TEMP 36.22512–37.44744; O2SAT 94–100
[2024-05-02 06:09] LABS: HEMATOCRIT. 22.7 % (36.0-48.0); HEMOGLOBIN. 7.3 g/dL (12.0-16.0); MEAN CORPUSCULAR HEMOGLOBIN 30.2 pg (28.0-32.0); MEAN CORPUSCULAR HGB CONC 31.9 g/dL (31.0-37.0); MEAN CORPUSCULAR VOLUME 94.8 fL (81.0-99.0); MEAN PLATELET VOLUME 9.2 fl (7.4-10.4); PLATELET 368 x1000/uL (130-400); RED CELL DISTRIBUTION WIDTH 15.8 % (11.6-14.6); WHITE BLOOD COUNT 13.5 x1000/uL (4.5-11.0)
[2024-05-02 06:17] LABS: POTASSIUM 3.7 mEq/L (3.5-5.1)
[2024-05-02 06:18] LABS: CALCIUM 8.7 mg/dL (8.7-10.4); DIFFERENTIAL COMMENT 1
[2024-05-02 10:23] LABS: ANISOCYTOSIS 1+; PLATELET ESTIMATE NORMAL
[2024-05-02] MEDS: VANCOMYCIN 500MG/100ML IV SCH (16:51)
[2024-05-03] VITALS (104 sets, daily range): BP systolic 126–167; BP diastolic 64–117; PULSE 75–97; RESP 0–40; TEMP 36.78072–37.55856; O2SAT 95–100
[2024-05-03 05:48] LABS: HEMATOCRIT. 25.7 % (36.0-48.0); HEMOGLOBIN. 8.3 g/dL (12.0-16.0); MEAN CORPUSCULAR HEMOGLOBIN 30.8 pg (28.0-32.0); MEAN CORPUSCULAR HGB CONC 32.4 g/dL (31.0-37.0); MEAN PLATELET VOLUME 8.7 fl (7.4-10.4); PLATELET 465 x1000/uL (130-400); RED BLOOD CELL COUNT 2.71 mill/uL (4.2-5.4); RED CELL DISTRIBUTION WIDTH 16.3 % (11.6-14.6); WHITE BLOOD COUNT 15.2 x1000/uL (4.5-11.0)
[2024-05-03 05:53] LABS: POTASSIUM 3.9 mEq/L (3.5-5.1)
[2024-05-03 05:55] LABS: CALCIUM 9.2 mg/dL (8.7-10.4)
[2024-05-03 05:57] LABS: DIFFERENTIAL COMMENT 1
[2024-05-03 05:59] LABS: CREATININE 3.8 mg/dL (0.6-1.0)
[2024-05-03] MEDS: AMLODIPINE 5MG TABLET PO SCH (09:33)
[2024-05-03 09:36] LABS: BG BASE EXCESS 0.3 mmol/L (-2.0-3.0); BG CARBOXYHEMOGLOBIN 1.2 % (0.5-1.5); BG DEOXYHEMOGLOBIN 2.2 % (0.0-5.0); BG FRACTION INSPIRED OXYGEN 40; BG HCO3 ACT 25.2 mmol/L (21.0-28.0); BG METHEMOGLOBIN 0.3 % (0.5-1.5); BG OXYGEN SATURATION 97.8 % (94.0-98.0); BG OXYHEMOGLOBIN 96.3 % (94.0-98.0); BG PCO2 41.8 mmHg (32.0-45.0); BG PH 7.398 (7.350-7.450); BG PO2 101.1 mmHg (83.0-108.0); BG SAMPLE SITE LEFT RADIAL; BG TOTAL HEMOGLOBIN 11.9 g/dL (12.0-16.0); BG VENT MODE VENT - CPAP
[2024-05-03] MEDS ORDERED: SODIUM CHLORIDE 0.9% 1,000 ML IV SCH (11:00)
[2024-05-03 12:22] LABS: HEMATOCRIT 24.1 % (36.0-48.0); HEMOGLOBIN 7.5 g/dL (12.0-16.0)
[2024-05-03 12:54] LABS: INR 1.1; PARTIAL THROMBOPLASTIN TIME 32.6 sec (23.4-31.0); PROTHROMBIN TIME 12.1 sec (9.6-11.0)
[2024-05-03] MEDS: DEXT 5%/0.9% NACL 1,000 ML IV SCH (13:12)
[2024-05-03] MEDS: DEXMEDETOMIDINE 400 MCG/100 ML 100 ML IV PRN (14:27)
[2024-05-03 16:57] LABS: CARBON DIOXIDE 24 mEq/L (21-32); CHLORIDE 108 mEq/L (98-107); POTASSIUM 3.9 mEq/L (3.5-5.1); SODIUM 141 mEq/L (136-145)
[2024-05-03 16:58] LABS: CALCIUM 8.6 mg/dL (8.7-10.4)
[2024-05-03 17:03] LABS: GLUCOSE 218 mg/dL (70-105); UREA NITROGEN BLOOD 35 mg/dL (9-23)
[2024-05-03 17:05] LABS: PHOSPHORUS 3.6 mg/dL (2.5-4.9)
[2024-05-03 17:07] LABS: ANISOCYTOSIS 1+; PLATELET ESTIMATE INCREASED
[2024-05-03 17:29] LABS: HEMATOCRIT 20.6 % (36.0-48.0); HEMOGLOBIN 6.7 g/dL (12.0-16.0)
[2024-05-04] VITALS (71 sets, daily range): BP systolic 127–164; BP diastolic 72–102; PULSE 72–99; RESP 0–22; TEMP 36.6696–37.61412; O2SAT 97–100
[2024-05-04 01:12] LABS: HEMATOCRIT 25.6 % (36.0-48.0); HEMOGLOBIN 8.5 g/dL (12.0-16.0)
[2024-05-04 05:54] LABS: BASOPHILS % 0.8 % (0.0-2.0); EOSINOPHILS % 1.4 % (0.0-5.0); HEMATOCRIT. 24.2 % (36.0-48.0); LYMPHOCYTES % 8.3 % (20.0-50.0); MEAN CORPUSCULAR HGB CONC 32.9 g/dL (31.0-37.0); MEAN CORPUSCULAR VOLUME 94.1 fL (81.0-99.0); MEAN PLATELET VOLUME 8.6 fl (7.4-10.4); MONOCYTES % 9.6 % (2.0-8.0); NEUTROPHILS % 79.9 % (40.0-76.0); PLATELET 396 x1000/uL (130-400); RED BLOOD CELL COUNT 2.58 mill/uL (4.2-5.4); RED CELL DISTRIBUTION WIDTH 15.6 % (11.6-14.6); WHITE BLOOD COUNT 9.5 x1000/uL (4.5-11.0)
[2024-05-04 06:04] LABS: POTASSIUM 3.9 mEq/L (3.5-5.1)
[2024-05-04 06:05] LABS: CALCIUM 8.9 mg/dL (8.7-10.4)
[2024-05-04 06:10] LABS: CREATININE 4.6 mg/dL (0.6-1.0)
[2024-05-04 06:38] LABS: INR 1.1; PROTHROMBIN TIME 12.1 sec (9.6-11.0)
[2024-05-04] MEDS: HYDRALAZINE 20MG/ML VIAL IV SCH (09:01)
[2024-05-04 12:18] LABS: HEMATOCRIT 24.8 % (36.0-48.0); HEMOGLOBIN 8.1 g/dL (12.0-16.0)
[2024-05-04 21:54] LABS: HEMATOCRIT 27.8 % (36.0-48.0); HEMOGLOBIN 8.4 g/dL (12.0-16.0)
[2024-05-05] VITALS (89 sets, daily range): BP systolic 110–156; BP diastolic 47–93; PULSE 63–98; RESP 0–22; TEMP 36.55848–37.16964; O2SAT 93–100
[2024-05-05 06:26] LABS: BASOPHILS % 0.9 % (0.0-2.0); EOSINOPHILS % 1.6 % (0.0-5.0); HEMATOCRIT. 25.3 % (36.0-48.0); HEMOGLOBIN. 8.2 g/dL (12.0-16.0); LYMPHOCYTES % 7.9 % (20.0-50.0); MEAN CORPUSCULAR HGB CONC 32.5 g/dL (31.0-37.0); MEAN CORPUSCULAR VOLUME 95.3 fL (81.0-99.0); MEAN PLATELET VOLUME 8.7 fl (7.4-10.4); MONOCYTES % 9.1 % (2.0-8.0); NEUTROPHILS % 80.5 % (40.0-76.0); PLATELET 406 x1000/uL (130-400); RED BLOOD CELL COUNT 2.66 mill/uL (4.2-5.4); WHITE BLOOD COUNT 10.4 x1000/uL (4.5-11.0)
[2024-05-05] MEDS: MIDAZOLAM 100MG/100ML PMX 100 ML IV PRN (09:40)
[2024-05-05] MEDS ORDERED: DEXTROSE 50% WATER 50ML SYRINGE IV PRN (11:30)
[2024-05-05] MEDS: INSULIN LISPRO 100 UNITS/ML SUBCUT SCH (11:52)
[2024-05-05] MEDS: BLOOD SUGAR DIAGNOSTIC STRIP TEST SCH (11:52)
[2024-05-05] MEDS: FERROUS SULFATE 300MG/5ML UDC NG SCH (13:12)
[2024-05-05] MEDS: DEXMEDETOMIDINE 400 MCG/100 ML 100 ML IV PRN (23:00)
[2024-05-06] VITALS (51 sets, daily range): BP systolic 127–154; BP diastolic 61–81; PULSE 70–94; RESP 0–28; TEMP 36.61404–37.28076; O2SAT 93–100
[2024-05-06 05:10] LABS: BASOPHILS % 0.6 % (0.0-2.0); EOSINOPHILS % 2.3 % (0.0-5.0); HEMATOCRIT. 25.1 % (36.0-48.0); HEMOGLOBIN. 8.1 g/dL (12.0-16.0); LYMPHOCYTES % 8.1 % (20.0-50.0); MEAN CORPUSCULAR HEMOGLOBIN 30.9 pg (28.0-32.0); MEAN CORPUSCULAR HGB CONC 32.2 g/dL (31.0-37.0); MEAN CORPUSCULAR VOLUME 95.9 fL (81.0-99.0); MEAN PLATELET VOLUME 8.8 fl (7.4-10.4); MONOCYTES % 7.4 % (2.0-8.0); NEUTROPHILS % 81.6 % (40.0-76.0); PLATELET 388 x1000/uL (130-400); RED BLOOD CELL COUNT 2.61 mill/uL (4.2-5.4); RED CELL DISTRIBUTION WIDTH 15.7 % (11.6-14.6); WHITE BLOOD COUNT 9.6 x1000/uL (4.5-11.0)
[2024-05-06 05:21] LABS: POTASSIUM 4.1 mEq/L (3.5-5.1)
[2024-05-06 05:23] LABS: CALCIUM 8.5 mg/dL (8.7-10.4)
[2024-05-06 05:27] LABS: CREATININE 4.9 mg/dL (0.6-1.0)
[2024-05-06] MEDS: IOHEXOL-350 100 ML BOTTLE ONE (07:44)
[2024-05-06 11:27] LABS: BG BASE EXCESS -4.1 mmol/L (-2.0-3.0); BG CARBOXYHEMOGLOBIN 1.2 % (0.5-1.5); BG DEOXYHEMOGLOBIN 1.5 % (0.0-5.0); BG FRACTION INSPIRED OXYGEN 40; BG HCO3 ACT 20.4 mmol/L (21.0-28.0); BG METHEMOGLOBIN 0.3 % (0.5-1.5); BG OXYGEN SATURATION 98.5 % (94.0-98.0); BG PCO2 34.7 mmHg (32.0-45.0); BG PH 7.387 (7.350-7.450); BG PO2 116.6 mmHg (83.0-108.0); BG SAMPLE SITE LEFT RADIAL; BG TOTAL HEMOGLOBIN 8.5 g/dL (12.0-16.0); BG VENT MODE VENT - CPAP
[2024-05-06] MEDS: SODIUM CHLORIDE 0.9% 1,000 ML IV SCH (12:07)
[2024-05-06] MEDS: IPRATROPIUM/ALBUTEROL 0.5-3(2.5)MG/3ML NEB HHN SCH (12:27)
[2024-05-06] MEDS: BUDESONIDE 0.5MG/2ML NEB HHN SCH (12:27)
[2024-05-07] VITALS (81 sets, daily range): BP systolic 61–194; BP diastolic 19–123; PULSE 35–124; RESP 0–28; TEMP 36.44736–36.55848; O2SAT 70–100
[2024-05-07] MEDS: ACETAMINOPHEN 650MG/20.3ML UDC PO PRN (00:13)
[2024-05-07] MEDS: DIPHENHYDRAMINE 50MG/ML VIAL IV NR (00:20)
[2024-05-07] MEDS: MORPHINE SULFATE 2 MG/ML INJ (NOT FOR IM USE) IV PRN (03:42)
[2024-05-07 06:03] LABS: CALCIUM 8.9 mg/dL (8.7-10.4)
[2024-05-07 06:13] LABS: HEMATOCRIT. 25.5 % (36.0-48.0); HEMOGLOBIN. 8.2 g/dL (12.0-16.0); MEAN CORPUSCULAR HEMOGLOBIN 31.1 pg (28.0-32.0); MEAN CORPUSCULAR HGB CONC 32.4 g/dL (31.0-37.0); MEAN PLATELET VOLUME 8.7 fl (7.4-10.4); PLATELET 349 x1000/uL (130-400); RED BLOOD CELL COUNT 2.65 mill/uL (4.2-5.4); RED CELL DISTRIBUTION WIDTH 15.9 % (11.6-14.6); WHITE BLOOD COUNT 12.4 x1000/uL (4.5-11.0)
[2024-05-07 06:28] LABS: CREATININE 5.7 mg/dL (0.6-1.0)
[2024-05-07 07:29] LABS: DIFFERENTIAL COMMENT 1
[2024-05-07 09:25] LABS: BG BASE EXCESS -3.3 mmol/L (-2.0-3.0); BG CARBOXYHEMOGLOBIN 0.4 % (0.5-1.5); BG DEOXYHEMOGLOBIN 0.6 % (0.0-5.0); BG FRACTION INSPIRED OXYGEN 100; BG HCO3 ACT 22.9 mmol/L (21.0-28.0); BG METHEMOGLOBIN 0.3 % (0.5-1.5); BG OXYGEN SATURATION 99.4 % (94.0-98.0); BG OXYHEMOGLOBIN 98.7 % (94.0-98.0); BG PCO2 46.6 mmHg (32.0-45.0); BG PO2 169.1 mmHg (83.0-108.0); BG SAMPLE SITE RIGHT RADIAL; BG TOTAL HEMOGLOBIN 9.2 g/dL (12.0-16.0); BG VENT MODE VENT - PRVC
[2024-05-07 10:21] LABS: PLATELET ESTIMATE NORMAL
[2024-05-07] MEDS ORDERED: NALOXONE HCL 0.4MG/ML VIAL IV PRN (12:45)
[2024-05-07] MEDS: VANCOMYCIN 1.25GM PMX (XELLIA) 250 ML IV NR (14:12)
[2024-05-07] MEDS: CEFEPIME 1GM/50ML 50 ML IV SCH (14:12)
[2024-05-07] MEDS: CLONIDINE 0.1MG TABLET PO PRN (14:54)
[2024-05-07 20:32] LABS: TROPONIN I HIGH SENSITIVITY 29 ng/L (3.0-34)
[2024-05-08] VITALS (73 sets, daily range): BP systolic 125–176; BP diastolic 64–83; PULSE 76–97; RESP 0–25; TEMP 36.16956–37.16964; O2SAT 94–100
[2024-05-08 05:25] LABS: HEMOGLOBIN. 7.6 g/dL (12.0-16.0); MEAN CORPUSCULAR HEMOGLOBIN 31.5 pg (28.0-32.0); MEAN CORPUSCULAR VOLUME 95.4 fL (81.0-99.0); MEAN PLATELET VOLUME 8.9 fl (7.4-10.4); PLATELET 342 x1000/uL (130-400); RED BLOOD CELL COUNT 2.41 mill/uL (4.2-5.4); WHITE BLOOD COUNT 11.7 x1000/uL (4.5-11.0)
[2024-05-08 05:33] LABS: CHLORIDE 106 mEq/L (98-107); POTASSIUM 4.2 mEq/L (3.5-5.1); SODIUM 142 mEq/L (136-145)
[2024-05-08 05:34] LABS: CARBON DIOXIDE 23 mEq/L (21-32)
[2024-05-08 05:39] LABS: CREATININE 4.6 mg/dL (0.6-1.0); GLUCOSE 165 mg/dL (70-105); UREA NITROGEN BLOOD 37 mg/dL (9-23)
[2024-05-08 05:40] LABS: ALANINE AMINOTRANSFERASE 16 IU/L (10-49)
[2024-05-08 05:41] LABS: ALBUMIN 3.2 g/dL (3.2-4.8); ASPARTATE AMINOTRANSFERASE 22 IU/L (<34); BILIRUBIN TOTAL 0.5 mg/dL (0.1-1.0); PROTEIN TOTAL 6.6 g/dL (6.0-8.3)
[2024-05-08 07:19] LABS: DIFFERENTIAL COMMENT 1
[2024-05-08 16:10] LABS: ANISOCYTOSIS 1+; PLATELET ESTIMATE NORMAL
[2024-05-09] VITALS (81 sets, daily range): BP systolic 133–155; BP diastolic 73–91; PULSE 73–99; RESP 0–35; TEMP 36.44736–36.72516; O2SAT 88–100
[2024-05-09 05:33] LABS: HEMATOCRIT. 24.9 % (36.0-48.0); HEMOGLOBIN. 7.8 g/dL (12.0-16.0); MEAN CORPUSCULAR HEMOGLOBIN 31.4 pg (28.0-32.0); MEAN CORPUSCULAR HGB CONC 31.3 g/dL (31.0-37.0); MEAN CORPUSCULAR VOLUME 100.2 fL (81.0-99.0); MEAN PLATELET VOLUME 8.7 fl (7.4-10.4); PLATELET 337 x1000/uL (130-400); RED BLOOD CELL COUNT 2.48 mill/uL (4.2-5.4); RED CELL DISTRIBUTION WIDTH 17.4 % (11.6-14.6); WHITE BLOOD COUNT 8.7 x1000/uL (4.5-11.0)
[2024-05-09 05:39] LABS: POTASSIUM 4.2 mEq/L (3.5-5.1)
[2024-05-09 05:40] LABS: CALCIUM 8.4 mg/dL (8.7-10.4)
[2024-05-09 05:51] LABS: CREATININE 5.3 mg/dL (0.6-1.0)
[2024-05-09 06:32] LABS: DIFFERENTIAL COMMENT 1
[2024-05-09 15:21] LABS: PLATELET ESTIMATE NORMAL
[2024-05-09 16:46] LABS: INR 1.3; PROTHROMBIN TIME 13.8 sec (9.6-11.0)
[2024-05-09] MEDS: MORPHINE SULFATE 2 MG/ML INJ (NOT FOR IM USE) IV SCH (20:28)
[2024-05-10] VITALS (32 sets, daily range): BP systolic 140–168; BP diastolic 78–125; PULSE 90–113; RESP 16–33; TEMP 35.89176–38.6142; O2SAT 97–100
[2024-05-10 06:47] LABS: POTASSIUM 4.1 mEq/L (3.5-5.1)
[2024-05-10 06:48] LABS: CALCIUM 8.7 mg/dL (8.7-10.4)
[2024-05-10 06:55] LABS: HEMATOCRIT. 25.1 % (36.0-48.0); HEMOGLOBIN. 7.8 g/dL (12.0-16.0); MEAN CORPUSCULAR HEMOGLOBIN 30.6 pg (28.0-32.0); MEAN CORPUSCULAR HGB CONC 31.1 g/dL (31.0-37.0); MEAN CORPUSCULAR VOLUME 98.4 fL (81.0-99.0); MEAN PLATELET VOLUME 8.5 fl (7.4-10.4); PLATELET 350 x1000/uL (130-400); RED BLOOD CELL COUNT 2.55 mill/uL (4.2-5.4); WHITE BLOOD COUNT 18.9 x1000/uL (4.5-11.0)
[2024-05-10 07:21] LABS: CREATININE 5.9 mg/dL (0.6-1.0)
[2024-05-10 07:35] LABS: DIFFERENTIAL COMMENT 1
[2024-05-10] MEDS: LORAZEPAM 2MG/ML INJ IV NR (11:32)
[2024-05-10] MEDS ORDERED: NALOXONE HCL 0.4MG/ML VIAL IV PRN (12:15)
[2024-05-10] MEDS: MORPHINE SULFATE 2 MG/ML INJ (NOT FOR IM USE) IV NR (12:50)
[2024-05-10 13:21] LABS: BG BASE EXCESS -7.2 mmol/L (-2.0-3.0); BG CARBOXYHEMOGLOBIN 1.3 % (0.5-1.5); BG DEOXYHEMOGLOBIN 4.1 % (0.0-5.0); BG FRACTION INSPIRED OXYGEN 40; BG HCO3 ACT 18.6 mmol/L (21.0-28.0); BG METHEMOGLOBIN 0.3 % (0.5-1.5); BG OXYGEN SATURATION 95.8 % (94.0-98.0); BG OXYHEMOGLOBIN 94.3 % (94.0-98.0); BG PCO2 38.7 mmHg (32.0-45.0); BG PO2 83.8 mmHg (83.0-108.0); BG SAMPLE SITE RIGHT RADIAL; BG TOTAL HEMOGLOBIN 8.3 g/dL (12.0-16.0); BG VENT MODE VENT - AC
[2024-05-10] MEDS: METHOCARBAMOL 500MG TABLET PO PRN (16:21)
[2024-05-10 17:23] LABS: ANISOCYTOSIS 1+; PLATELET ESTIMATE NORMAL
[2024-05-10] MEDS: LORAZEPAM 2MG/ML INJ IV PRN (20:37)
[2024-05-11] VITALS (26 sets, daily range): BP systolic 139–187; BP diastolic 79–126; PULSE 80–156; RESP 15–34; TEMP 36.114–38.11416; O2SAT 95–100
[2024-05-11] MEDS: MORPHINE SULFATE 2 MG/ML INJ (NOT FOR IM USE) IV PRN (00:58)
[2024-05-11 07:21] LABS: MEAN CORPUSCULAR HEMOGLOBIN 30.8 pg (28.0-32.0); MEAN CORPUSCULAR HGB CONC 30.7 g/dL (31.0-37.0); MEAN CORPUSCULAR VOLUME 100.1 fL (81.0-99.0); MEAN PLATELET VOLUME 9.1 fl (7.4-10.4); PLATELET 294 x1000/uL (130-400); RED BLOOD CELL COUNT 2.21 mill/uL (4.2-5.4); RED CELL DISTRIBUTION WIDTH 18.2 % (11.6-14.6); WHITE BLOOD COUNT 16.8 x1000/uL (4.5-11.0)
[2024-05-11 07:41] LABS: CREATININE 4.6 mg/dL (0.6-1.0)
[2024-05-11 09:56] LABS: DIFFERENTIAL COMMENT 1
[2024-05-11 09:58] LABS: HEMATOCRIT. 22.1 % (36.0-48.0); HEMOGLOBIN. 6.8 g/dL (12.0-16.0)
[2024-05-11] MEDS: MORPHINE SULFATE 2 MG/ML INJ (NOT FOR IM USE) IV NR (15:10)
[2024-05-12] VITALS (22 sets, daily range): BP systolic 126–163; BP diastolic 67–98; PULSE 76–99; RESP 8–32; TEMP 35.8362–36.3918; O2SAT 93–100
[2024-05-12] MEDS: MORPHINE SULFATE 2 MG/ML INJ (NOT FOR IM USE) IV PRN (04:02)
[2024-05-12 06:51] LABS: HEMATOCRIT. 23.8 % (36.0-48.0); HEMOGLOBIN. 7.7 g/dL (12.0-16.0); MEAN CORPUSCULAR HEMOGLOBIN 30.9 pg (28.0-32.0); MEAN CORPUSCULAR HGB CONC 32.2 g/dL (31.0-37.0); MEAN CORPUSCULAR VOLUME 95.9 fL (81.0-99.0); MEAN PLATELET VOLUME 8.8 fl (7.4-10.4); PLATELET 272 x1000/uL (130-400); RED BLOOD CELL COUNT 2.48 mill/uL (4.2-5.4); RED CELL DISTRIBUTION WIDTH 18.1 % (11.6-14.6)
[2024-05-12 07:08] LABS: DIFFERENTIAL COMMENT 1
[2024-05-12] MEDS: GABAPENTIN 300MG CAPSULE PO SCH (13:58)
[2024-05-12] MEDS: QUETIAPINE FUMARATE 25MG TABLET NG SCH (14:14)
[2024-05-12 17:14] LABS: PLATELET ESTIMATE NORMAL
[2024-05-12 17:15] LABS: ANISOCYTOSIS 2+; HYPOCHROMASIA 1+
[2024-05-12 21:29] LABS: ANISOCYTOSIS 1+; HYPOCHROMASIA 1+; PLATELET ESTIMATE NORMAL
[2024-05-13] VITALS (27 sets, daily range): BP systolic 116–177; BP diastolic 71–95; PULSE 70–102; RESP 9–23; TEMP 36.28068–37.66968; O2SAT 95–100
[2024-05-13 08:05] LABS: INR 1.3; PROTHROMBIN TIME 14.1 sec (9.6-11.0)
[2024-05-13 08:13] LABS: HEMATOCRIT. 23.8 % (36.0-48.0); HEMOGLOBIN. 7.8 g/dL (12.0-16.0); MEAN CORPUSCULAR HEMOGLOBIN 31.5 pg (28.0-32.0); MEAN CORPUSCULAR HGB CONC 32.8 g/dL (31.0-37.0); MEAN CORPUSCULAR VOLUME 96.1 fL (81.0-99.0); PLATELET 271 x1000/uL (130-400); RED BLOOD CELL COUNT 2.47 mill/uL (4.2-5.4); RED CELL DISTRIBUTION WIDTH 18.2 % (11.6-14.6); WHITE BLOOD COUNT 10.2 x1000/uL (4.5-11.0)
[2024-05-13 08:22] LABS: POTASSIUM 3.9 mEq/L (3.5-5.1)
[2024-05-13 08:30] LABS: DIFFERENTIAL COMMENT 1
[2024-05-13 08:33] LABS: CREATININE 5.7 mg/dL (0.6-1.0)
[2024-05-13] MEDS: MORPHINE SULFATE 2 MG/ML INJ (NOT FOR IM USE) IV PRN (11:55)
[2024-05-13] MEDS: BACLOFEN 10MG TABLET NG SCH (16:25)
[2024-05-13 18:01] LABS: ANISOCYTOSIS 2+; HYPOCHROMASIA 1+; PLATELET ESTIMATE NORMAL
[2024-05-13 18:04] LABS: TROPONIN I HIGH SENSITIVITY 14 ng/L (3.0-34)
[2024-05-13] MEDS: GABAPENTIN SOLN 300MG/6ML UDC NG SCH (22:00)
[2024-05-14] VITALS (24 sets, daily range): BP systolic 111–140; BP diastolic 61–78; PULSE 64–80; RESP 8–19; TEMP 36.28068–37.94748; O2SAT 98–100
[2024-05-14 06:45] LABS: HEMATOCRIT. 22.9 % (36.0-48.0); HEMOGLOBIN. 7.2 g/dL (12.0-16.0); MEAN CORPUSCULAR HEMOGLOBIN 30.9 pg (28.0-32.0); MEAN CORPUSCULAR HGB CONC 31.3 g/dL (31.0-37.0); MEAN CORPUSCULAR VOLUME 98.8 fL (81.0-99.0); PLATELET 260 x1000/uL (130-400); RED BLOOD CELL COUNT 2.32 mill/uL (4.2-5.4); RED CELL DISTRIBUTION WIDTH 18.7 % (11.6-14.6); WHITE BLOOD COUNT 10.9 x1000/uL (4.5-11.0)
[2024-05-14 06:54] LABS: CARBON DIOXIDE 21 mEq/L (21-32); CHLORIDE 108 mEq/L (98-107); POTASSIUM 3.6 mEq/L (3.5-5.1); SODIUM 140 mEq/L (136-145)
[2024-05-14 06:55] LABS: CALCIUM 8.7 mg/dL (8.7-10.4)
[2024-05-14 06:59] LABS: CREATININE 4.9 mg/dL (0.6-1.0); GLUCOSE 148 mg/dL (70-105)
[2024-05-14 07:00] LABS: UREA NITROGEN BLOOD 41 mg/dL (9-23)
[2024-05-14 07:02] LABS: PHOSPHORUS 2.7 mg/dL (2.5-4.9)
[2024-05-14 07:11] LABS: DIFFERENTIAL COMMENT 1
[2024-05-14 08:11] LABS: INR 1.4
[2024-05-14 10:42] LABS: PLATELET ESTIMATE NORMAL
[2024-05-14 10:43] LABS: ANISOCYTOSIS 1+; HYPOCHROMASIA 1+
[2024-05-14 12:19] LABS: BG BASE EXCESS -3.9 mmol/L (-2.0-3.0); BG CARBOXYHEMOGLOBIN 0.8 % (0.5-1.5); BG DEOXYHEMOGLOBIN 4.1 % (0.0-5.0); BG FRACTION INSPIRED OXYGEN 40; BG HCO3 ACT 21.5 mmol/L (21.0-28.0); BG METHEMOGLOBIN 0.3 % (0.5-1.5); BG OXYGEN SATURATION 95.9 % (94.0-98.0); BG OXYHEMOGLOBIN 94.8 % (94.0-98.0); BG PCO2 40.3 mmHg (32.0-45.0); BG PH 7.345 (7.350-7.450); BG PO2 83.5 mmHg (83.0-108.0); BG SAMPLE SITE RIGHT RADIAL; BG TOTAL HEMOGLOBIN 7.9 g/dL (12.0-16.0); BG VENT MODE VENT - AC
[2024-05-14] MEDS ORDERED: VANCOMYCIN 500MG/100ML IV NR (15:00)
[2024-05-14] MEDS ORDERED: PROPOFOL 200MG/20ML VIAL IV ONE (16:06)
[2024-05-14] MEDS: PIPERACILLIN/TAZO 3.375G/50ML 50 ML IV SCH (19:10)
[2024-05-14] MEDS: SULFAMETHOXAZOLE/TRIMETHOPRIM 800/160MG TABLET PO SCH (19:11)
[2024-05-14] MEDS: PHYTONADIONE 10MG/ML INJ SUBCUT SCH (19:24)
[2024-05-14 22:14] LABS: PHOSPHORUS 3.4 mg/dL (2.5-4.9)
[2024-05-15] VITALS (21 sets, daily range): BP systolic 102–138; BP diastolic 57–92; PULSE 70–85; RESP 9–20; TEMP 36.114–36.55848; O2SAT 99–100
[2024-05-15 06:27] LABS: POTASSIUM 3.9 mEq/L (3.5-5.1)
[2024-05-15 06:28] LABS: CALCIUM 8.7 mg/dL (8.7-10.4)
[2024-05-15] MEDS: METOCLOPRAMIDE HCL 10MG/2ML VIAL IV SCH (06:42)
[2024-05-15 07:20] LABS: CREATININE 5.4 mg/dL (0.6-1.0)
[2024-05-15 08:28] LABS: HEMATOCRIT. 24.4 % (36.0-48.0); HEMOGLOBIN. 7.8 g/dL (12.0-16.0); MEAN CORPUSCULAR HEMOGLOBIN 31.4 pg (28.0-32.0); MEAN CORPUSCULAR HGB CONC 31.7 g/dL (31.0-37.0); MEAN CORPUSCULAR VOLUME 98.8 fL (81.0-99.0); MEAN PLATELET VOLUME 9.1 fl (7.4-10.4); PLATELET 302 x1000/uL (130-400); RED BLOOD CELL COUNT 2.47 mill/uL (4.2-5.4); RED CELL DISTRIBUTION WIDTH 18.6 % (11.6-14.6); WHITE BLOOD COUNT 9.4 x1000/uL (4.5-11.0)
[2024-05-15] MEDS: SULFAMETHOXAZOLE/TRIMETHOPRIM 400/80MG TAB PO SCH (08:41)
[2024-05-15 08:46] LABS: DIFFERENTIAL COMMENT 1
[2024-05-15] MEDS ORDERED: BLOOD SUGAR DIAGNOSTIC STRIP TEST SCH (20:45)
[2024-05-15] MEDS ORDERED: DEXTROSE 50% WATER 50ML SYRINGE IV PRN (20:45)
[2024-05-15] MEDS ORDERED: INSULIN LISPRO 100 UNITS/ML SUBCUT SCH (21:00)
[2024-05-15 21:57] LABS: ANISOCYTOSIS 1+; PLATELET ESTIMATE NORMAL
[2024-05-15] MEDS: BLOOD SUGAR DIAGNOSTIC STRIP TEST SCH (23:29)
[2024-05-15] MEDS: INSULIN LISPRO 100 UNITS/ML SUBCUT SCH (23:37)
[2024-05-16] VITALS (28 sets, daily range): BP systolic 94–131; BP diastolic 51–77; PULSE 62–100; RESP 0–30; TEMP 36.28068–37.00296; O2SAT 98–100
[2024-05-16 07:03] LABS: HEMATOCRIT. 25.8 % (36.0-48.0); HEMOGLOBIN. 8.1 g/dL (12.0-16.0); MEAN CORPUSCULAR HEMOGLOBIN 30.6 pg (28.0-32.0); MEAN CORPUSCULAR HGB CONC 31.2 g/dL (31.0-37.0); MEAN CORPUSCULAR VOLUME 97.9 fL (81.0-99.0); MEAN PLATELET VOLUME 8.8 fl (7.4-10.4); PLATELET 316 x1000/uL (130-400); RED BLOOD CELL COUNT 2.64 mill/uL (4.2-5.4); RED CELL DISTRIBUTION WIDTH 18.3 % (11.6-14.6); WHITE BLOOD COUNT 9.7 x1000/uL (4.5-11.0)
[2024-05-16 07:23] LABS: DIFFERENTIAL COMMENT 1
[2024-05-16 16:25] LABS: PLATELET ESTIMATE NORMAL
[2024-05-16 20:43] LABS: POTASSIUM 3.6 mEq/L (3.5-5.1)
[2024-05-16 20:44] LABS: CALCIUM 8.5 mg/dL (8.7-10.4)
[2024-05-16 20:49] LABS: CREATININE 4.7 mg/dL (0.6-1.0)
[2024-05-17] VITALS (23 sets, daily range): BP systolic 93–135; BP diastolic 54–76; PULSE 70–82; RESP 8–25; TEMP 36.28068–37.11408; O2SAT 97–100
[2024-05-18] VITALS (26 sets, daily range): BP systolic 109–160; BP diastolic 58–96; PULSE 72–88; RESP 8–24; TEMP 36.22512–37.94748; O2SAT 99–100
[2024-05-18 06:21] LABS: CHLORIDE 103 mEq/L (98-107); SODIUM 135 mEq/L (136-145)
[2024-05-18 06:22] LABS: CARBON DIOXIDE 20 mEq/L (21-32)
[2024-05-18 06:23] LABS: CALCIUM 8.4 mg/dL (8.7-10.4)
[2024-05-18 06:27] LABS: GLUCOSE 150 mg/dL (70-105); UREA NITROGEN BLOOD 48 mg/dL (9-23)
[2024-05-18 06:29] LABS: CREATININE 5.2 mg/dL (0.6-1.0); PHOSPHORUS 3.2 mg/dL (2.5-4.9)
[2024-05-18 06:43] LABS: HEMATOCRIT. 25.8 % (36.0-48.0); HEMOGLOBIN. 8.1 g/dL (12.0-16.0); MEAN CORPUSCULAR HEMOGLOBIN 30.5 pg (28.0-32.0); MEAN CORPUSCULAR HGB CONC 31.3 g/dL (31.0-37.0); MEAN CORPUSCULAR VOLUME 97.4 fL (81.0-99.0); MEAN PLATELET VOLUME 9.1 fl (7.4-10.4); PLATELET 322 x1000/uL (130-400); RED BLOOD CELL COUNT 2.65 mill/uL (4.2-5.4); RED CELL DISTRIBUTION WIDTH 18.1 % (11.6-14.6); WHITE BLOOD COUNT 11.6 x1000/uL (4.5-11.0)
[2024-05-18 06:58] LABS: DIFFERENTIAL COMMENT 1
[2024-05-18] MEDS: PIPERACILLIN/TAZO 3.375G/50ML 50 ML IV SCH (17:51)
[2024-05-18 21:39] LABS: ANISOCYTOSIS 1+; PLATELET ESTIMATE NORMAL
[2024-05-19] VITALS (16 sets, daily range): BP systolic 78–134; BP diastolic 43–78; PULSE 76–131; RESP 6–27; TEMP 36.61404–37.05852; O2SAT 97–100
== END 2024-05-19 14:00 | DRG 4 ==
LOC: ER 10:18 → 7WST 12:10 → EDBEDREQSVC 12:14 → EDBEDREQTM 12:14 → 6EST 04-12 23:14 → MICUSO 04-20 14:47 → MICUNO 04-21 01:30 → 5EST 05-10 02:45
PROVIDERS: ADMIT Internal Medicine; ATTEND Internal Medicine
PROC: 02HV33Z Insertion of Infusion Device into Superior Vena Cava, Percutaneous Approach (ICD-10-PCS; 2024-04-07)
PROC: B548ZZA Ultrasonography of Superior Vena Cava, Guidance (ICD-10-PCS; 2024-04-07)
PROC: B5181ZA Fluoroscopy of Superior Vena Cava using Low Osmolar Contrast, Guidance (ICD-10-PCS; 2024-04-07)
PROC: 5A1D70Z Performance of Urinary Filtration, Intermittent, Less than 6 Hours Per Day (ICD-10-PCS; 2024-04-08)
PROC: 08123Z4 Bypass Right Anterior Chamber to Sclera, Percutaneous Approach (ICD-10-PCS; principal; 2024-04-09)
PROC: 5A1D70Z Performance of Urinary Filtration, Intermittent, Less than 6 Hours Per Day (ICD-10-PCS; 2024-04-10)
PROC: 06PY33Z Removal of Infusion Device from Lower Vein, Percutaneous Approach (ICD-10-PCS; 2024-04-10)
PROC: 06PY33Z Removal of Infusion Device from Lower Vein, Percutaneous Approach (ICD-10-PCS; 2024-04-10)
PROC: 02HV33Z Insertion of Infusion Device into Superior Vena Cava, Percutaneous Approach (ICD-10-PCS; 2024-04-10)
PROC: 0JH63XZ Insertion of Tunneled Vascular Access Device into Chest Subcutaneous Tissue and Fascia, Percutaneous Approach (ICD-10-PCS; 2024-04-10)
PROC: B5181ZA Fluoroscopy of Superior Vena Cava using Low Osmolar Contrast, Guidance (ICD-10-PCS; 2024-04-10)
PROC: 5A1D70Z Performance of Urinary Filtration, Intermittent, Less than 6 Hours Per Day (ICD-10-PCS; 2024-04-12)
PROC: 5A1D70Z Performance of Urinary Filtration, Intermittent, Less than 6 Hours Per Day (ICD-10-PCS; 2024-04-14)
PROC: 5A1D70Z Performance of Urinary Filtration, Intermittent, Less than 6 Hours Per Day (ICD-10-PCS; 2024-04-16)
PROC: 5A1D70Z Performance of Urinary Filtration, Intermittent, Less than 6 Hours Per Day (ICD-10-PCS; 2024-04-18)
PROC: 5A1955Z Respiratory Ventilation, Greater than 96 Consecutive Hours (ICD-10-PCS; 2024-04-20)
PROC: 5A1D70Z Performance of Urinary Filtration, Intermittent, Less than 6 Hours Per Day (ICD-10-PCS; 2024-04-20)
PROC: 5A12012 Performance of Cardiac Output, Single, Manual (ICD-10-PCS; 2024-04-20)
PROC: 5A1D70Z Performance of Urinary Filtration, Intermittent, Less than 6 Hours Per Day (ICD-10-PCS; 2024-04-21)
PROC: 5A1D70Z Performance of Urinary Filtration, Intermittent, Less than 6 Hours Per Day (ICD-10-PCS; 2024-04-23)
PROC: 05HY33Z Insertion of Infusion Device into Upper Vein, Percutaneous Approach (ICD-10-PCS; 2024-04-24)
PROC: 5A09357 Assistance with Respiratory Ventilation, Less than 24 Consecutive Hours, Continuous Positive Airway Pressure (ICD-10-PCS; 2024-04-25)
PROC: 5A1D70Z Performance of Urinary Filtration, Intermittent, Less than 6 Hours Per Day (ICD-10-PCS; 2024-04-25)
PROC: 30233N1 Transfusion of Nonautologous Red Blood Cells into Peripheral Vein, Percutaneous Approach (ICD-10-PCS; 2024-04-27)
PROC: 5A1D70Z Performance of Urinary Filtration, Intermittent, Less than 6 Hours Per Day (ICD-10-PCS; 2024-04-27)
PROC: 5A1D70Z Performance of Urinary Filtration, Intermittent, Less than 6 Hours Per Day (ICD-10-PCS; 2024-04-30)
PROC: 5A1D70Z Performance of Urinary Filtration, Intermittent, Less than 6 Hours Per Day (ICD-10-PCS; 2024-05-01)
PROC: 5A1D70Z Performance of Urinary Filtration, Intermittent, Less than 6 Hours Per Day (ICD-10-PCS; 2024-05-02)
PROC: 0DJ08ZZ Inspection of Upper Intestinal Tract, Via Natural or Artificial Opening Endoscopic (ICD-10-PCS; 2024-05-04)
PROC: 5A1D70Z Performance of Urinary Filtration, Intermittent, Less than 6 Hours Per Day (ICD-10-PCS; 2024-05-05)
PROC: 0BH17EZ Insertion of Endotracheal Airway into Trachea, Via Natural or Artificial Opening (ICD-10-PCS; 2024-05-07)
PROC: 5A1D70Z Performance of Urinary Filtration, Intermittent, Less than 6 Hours Per Day (ICD-10-PCS; 2024-05-07)
PROC: 0GBJ0ZZ Excision of Thyroid Gland Isthmus, Open Approach (ICD-10-PCS; 2024-05-09)
PROC: 0B110F4 Bypass Trachea to Cutaneous with Tracheostomy Device, Open Approach (ICD-10-PCS; 2024-05-09)
PROC: 0BJ08ZZ Inspection of Tracheobronchial Tree, Via Natural or Artificial Opening Endoscopic (ICD-10-PCS; 2024-05-09)
PROC: 0DB78ZX Excision of Stomach, Pylorus, Via Natural or Artificial Opening Endoscopic, Diagnostic (ICD-10-PCS; 2024-05-15)
PROC: 0DH63UZ Insertion of Feeding Device into Stomach, Percutaneous Approach (ICD-10-PCS; 2024-05-15)
PROC: 4A00X4Z Measurement of Central Nervous Electrical Activity, External Approach (ICD-10-PCS; 2024-05-16)
DX: E11.319 Type 2 diabetes mellitus with unspecified diabetic retinopathy without macular edema (principal); N17.0 Acute kidney failure with tubular necrosis; J69.0 Pneumonitis due to inhalation of food and vomit; G93.41 Metabolic encephalopathy; A41.9 Sepsis, unspecified organism; R57.9 Shock, unspecified; I13.2 Hypertensive heart and chronic kidney disease with heart failure and with stage 5 chronic kidney disease, or end stage renal disease; J15.212 Pneumonia due to Methicillin resistant Staphylococcus aureus; I82.411 Acute embolism and thrombosis of right femoral vein; K29.71 Gastritis, unspecified, with bleeding; J80 Acute respiratory distress syndrome; I46.9 Cardiac arrest, cause unspecified; N18.6 End stage renal disease; D62 Acute posthemorrhagic anemia; E87.20 Acidosis, unspecified; E87.5 Hyperkalemia; E78.00 Pure hypercholesterolemia, unspecified; E11.42 Type 2 diabetes mellitus with diabetic polyneuropathy; H54.8 Legal blindness, as defined in USA; K82.8 Other specified diseases of gallbladder; E83.39 Other disorders of phosphorus metabolism; E83.41 Hypermagnesemia; J84.9 Interstitial pulmonary disease, unspecified; G89.29 Other chronic pain; M51.16 Intervertebral disc disorders with radiculopathy, lumbar region; M47.26 Other spondylosis with radiculopathy, lumbar region; R04.0 Epistaxis; E11.39 Type 2 diabetes mellitus with other diabetic ophthalmic complication; H42 Glaucoma in diseases classified elsewhere; R26.9 Unspecified abnormalities of gait and mobility; R74.01 Elevation of levels of liver transaminase levels; E87.1 Hypo-osmolality and hyponatremia; E83.51 Hypocalcemia; I50.32 Chronic diastolic (congestive) heart failure; Z78.1 Physical restraint status; Z86.74 Personal history of sudden cardiac arrest; Z83.3 Family history of diabetes mellitus; Z86.718 Personal history of other venous thrombosis and embolism; Z88.8 Allergy status to other drugs, medicaments and biological substances; Z99.11 Dependence on respirator [ventilator] status; Z91.018 Allergy to other foods; Z87.19 Personal history of other diseases of the digestive system; Z87.891 Personal history of nicotine dependence; Z93.0 Tracheostomy status; Z93.1 Gastrostomy status; Z79.82 Long term (current) use of aspirin; Z79.4 Long term (current) use of insulin
CPT/HCPCS: 31500; 36415; 36556; 36558; 36573; 36589; 36600; 71045; 71275; 76604; 76700; 76937; 77001; 78580; 80048; 80053; 80061; 80076; 80202; 82375; 82553; 82607; 82728; 82746; 82805; 82962; 83036; 83540; 83550; 83605; 83735; 83880; 83970; 84100; 84132; 84145; 84478; 84484; 85014; 85018; 85025; 85027; 85044; 86705; 86709; 86850; 86900; 86920; 87070; 87077; 87106; 87186; 87340; 88305; 88312; 88313; 90935; 92950; 93005; 93306; 93970; 94003; 94640; 94660; 95816; 97162; 97166; 97168; 97535; 99152; 99153; 99285; A6261; C1725; C1750; C1752; C1769; J0278; J0360; J0610; J0690; J0692; J0885; J1200; J1642; J1644; J1815; J1885; J1940; J2060; J2185; J2250; J2270; J2470; J2543; J2704; J2765; J2919; J3010; J3301; J3370; J3430; J3480; J3490; J7030; J7042; J7050; J7060; J7608; J7626; P9016; Q9957; Q9967; G0500